=== PATIENT | male | born 1935 | race Two or more races ===

== ENCOUNTER 2023-12-30 02:32 | Inpatient (IN) | payer OTHER ==
[~2023-12-30] VITALS: Ht 162.6 cm; Wt 93.2 kg
[2023-12-30] VITALS (59 sets, daily range): BP systolic 79–121; BP diastolic 35–90; PULSE 67–130; RESP 10–30; TEMP 97.7–99; O2SAT 89–100
[~2023-12-30 02:32] MED LIST: METF-370 PO; ROSU20TA14 PO
[2023-12-30] MEDS: ONDANSETRON HCL 4 MG/2 ML VIAL IV ONE (03:00)
[2023-12-30] MEDS: SODIUM CHLORIDE 0.9% 2,000 ML IV ONE (03:01)
--- NOTE | 2023-12-30 03:02 | ED.PDOC ---
History of Present Illness HPI Comments 88-year-old male came to ER via EMS for generalized weakness., Picked up at home when family members noted for the past 2 days patient has been generally weak. Noted of episodes of on and a fever, shortness of breath, dysuria with cloudy urination. Upon arrival paramedics patient was noted to be hypotensive at 80/40 mm Hg, tachycardic at 140s, saturating 91% room air, blood sugar of 214 with a temp of 98.6 F. Patient was given IV fluids, and brought to the ER for further evaluation. Chief Complaint: General Weakness Time Seen by MD: 03:02 Reviewed Notes: Returner Notes Allergies: Coded Allergies: NO KNOWN ALLERGIES (Unverified , 12/30/23) Information Source: Patient, Emergency Med Personnel Mode of Arrival: EMS Severity: Moderate Timing: Days Duration: Since onset Prehospital treatment: IVF Past Medical History PAST MEDICAL HISTORY: COPD, DM Surgical History: Denies all surgeries Family History Family History: Reviewed,noncontributory to illness Social History Smoker: Non-Smoker Alcohol: Denies ETOH Use Drugs: Denies Drug Use Lives In: Home Constitutional: reports: fatigue, fever, malaise, weakness; denies: chills, diaphoresis, sweats, others EENTM: denies: blurred vision, double vision, ear bleeding, ear discharge, ear drainage, ear pain, ear ringing, eye pain, eye redness, hearing loss, mouth pain, mouth swelling, nasal discharge, nose bleeding, nose congestion, nose pain, photophobia, tearing, throat pain, throat swelling, voice changes, others Respiratory: reports: SOB at rest, shortness of breath; denies: cough, hemoptysis, orthopnea, SOB with excertion, stridor, wheezing, others Cardiovascular: denies: chest pain, dizzy spells, diaphoresis, Dyspnea on exertion, edema, irregular heart beat, left arm pain, lightheadedness, palpitations, PND, syncope, others Gastrointestinal: denies: abdomen distended, abdominal pain, blood streaked bowels, constipated, diarrhea, dysphagia, difficulty swallowing, hematemesis, melena, nausea, poor appetite, poor fluid intake, rectal bleeding, rectal pain, vomiting, others Genitourinary: reports: dysuria, others (Cloudy urine); denies: burning, flank pain, frequency, hematuria, incontinence, penile discharge, penile sore, pain, testicle pain, testicle swelling, urgency Neurological: denies: dizziness, fainting, headache, left sided numbness, left sided weakness, numbness, paresthesia, pre-existing deficit, right sided numbness, right sided weakness, seizure, speech problems, tingling, tremors, weakness, others Musculoskeletal: denies: back pain, gout, joint pain, joint swelling, muscle pain, muscle stiffness, neck pain, others Integumetry: denies: bruises, change in color, change in hair/nails, dryness, laceration, lesions, lumps, rash, wounds, others Allergic/Immunocompromised: denies: Difficulty Healing, Frequent Infections, Hives, Itching, others Hematologic/Lymphatic: denies: anemia, blood clots, easy bleeding, easy bruising, swollen glands, others Endocrine: denies: excessive hunger, excessive sweating, excessive thirst, excessive urination, flushing, intolerance to cold, intolerance to heat, unexplained weight gain, unexplained weight loss, others Psychiatric: denies: anxiety, bipolar disorder, depression, hopeless, panic disorder, schizophrenia, sleepless, suicidal, others Physical Exam General Appearance: No Apparent Distress, Normal HEENT: Normal ENT Inspection, Pharynx Normal, TMs Normal Neck: Full Range of Motion, Non-Tender, Normal, Normal Inspection Respiratory: Chest Non-Tender, Lungs Clear, No Accessory Muscle Use, No Respiratory Distress, Normal Breath Sounds Cardiovascular: No Edema, No JVD, No Murmur, No Gallop, Normal Peripheral Pulses, Regular Rate/Rhythm Breast Exam: Deferred Gastrointestinal: No Organomegaly, Non Tender, No Pulsatile Mass, Normal Bowel Sounds, Soft Genitalia: Deferred Pelvic: Deferred Rectal: Deferred Extremities: No calf tenderness, Normal capillary refill, Normal inspection, Normal range of motion, Non-tender, No pedal edema Musculoskeletal : Apperance: Normal Neurologic: Alert, hydro mechanic II-XII nml as Tested, No Motor Deficits, Normal Affect, Normal Mood, No Sensory Deficits Cerebellar Function: Normal Reflexes: Normal Skin: Dry, Normal Color, Warm Lymphatic: No Adenopathy Was a procedure done? Was a procedure done?: No Differential Dx Considerations may include: Anemia, electrolyte imbalance, sepsis, X-Ray, Labs, Meds, VS Vital Signs Date Time Temp Pulse Resp B/P (MAP) Pulse Ox O2 Delivery O2 Flow Rate FiO2 12/30/23 04:30 98.2 127 29 78/41 (53) 95 98.2 12/30/23 04:15 129 25 93/52 (66) 98 12/30/23 04:00 136 34 96/43 (60) 97 12/30/23 03:45 134 24 105/42 (63) 97 12/30/23 03:30 135 30 91/40 (57) 95 12/30/23 03:15 132 20 80/47 (58) 96 12/30/23 03:00 130 31 76/37 (50) 89 12/30/23 02:50 129 12/30/23 02:45 99.2 130 30 71/40 (50) 89 99.2 12/30/23 02:32 98.6 130 25 78/38 (51) 94 Lab Test 12/30/23 03:57 12/30/23 03:37 12/30/23 03:26 12/30/23 03:09 Range/Units Troponin I High Sensitivity 2483 *H 2789 *H </=54 ng/L Influenza Type A Antigen Negative Negative Influenza Type B Antigen Negative Negative SARS-CoV-2 Antigen (Rapid) Negative NEGATIVE Urine Color [place] H Yellow Urine Clarity Ex.turbid Clear Urine pH 5.5 5.0-9.0 Urine Specific [place] 1.023 1.001-1.035 Urine Protein 3+ H Negative Urine Ketones Negative Negative Urine Blood 3+ H Negative /uL Urine Nitrite Negative Negative Urine Bilirubin Negative Negative Urine Urobilinogen 3 H Negative mg/dL Urine Leukocyte Esterase 3+ Negative /uL Urine RBC 847 0 - 3 /hpf Urine WBC 624 0 - 3 /hpf Urine WBC Clumps Present None Seen /hpf Urine Squamous Epithelial Cells Few <5 /hpf Urine Bacteria None seen None Seen /hpf Urine Hyaline Casts Mod 0 - 2 /lpf Urine Granular Casts Few 0 /lpf Urine Mucus Few None Seen Urine Glucose Trace Normal mg/dL White Blood Count 8.1 4.4-10.8 10^3/uL Red Blood Count 4.94 4.5-5.90 10^6/uL Hemoglobin 14.9 13.5-17.5 g/dL Hematocrit 44.2 41.0-53.0 % Mean Corpuscular Volume 89.5 80.0-100.0 fL Mean Corpuscular Hemoglobin 30.1 28.0-32.0 pg Mean Corpuscular Hemoglobin Concent 33.7 32.0-36.0 g/dL Red Cell Distribution Width 13.8 11.8-14.3 % Platelet Count 140 140-450 10^3/uL Mean Platelet Volume 7.8 6.9-10.8 fL Neutrophils (%) (Auto) 93.7 H 37.0-80.0 % Lymphocytes (%) (Auto) 4.5 L 10.0-50.0 % Monocytes (%) (Auto) 1.5 0.0-12.0 % Eosinophils (%) (Auto) 0.1 0.0-7.0 % Basophils (%) (Auto) 0.2 0.0-2.0 % Neutrophils # (Auto) 7.6 1.6-8.6 10 ^3/uL Lymphocytes # (Auto) 0.4 0.4-5.4 10 ^3/uL Monocytes # (Auto) 0.1 0-1.3 10 ^3/uL Eosinophils # (Auto) 0 0-0.8 10 ^3/uL Basophils # (Auto) 0 0-0.2 10 ^3/uL Nucleated Red Blood Cells 0.2 % Sodium Level 140 136-145 mmol/L Potassium Level 3.4 L 3.5-5.1 mmol/L Chloride Level 104 98-107 mmol/L Carbon Dioxide Level 19 L 20-31 mmol/L Anion Gap 17 H 5-15 Blood Urea Nitrogen 19 9-23 mg/dL Creatinine 1.92 H 0.700-1.30 mg/dL Glomerular Filtration Rate Calc 34 >90 mL/min BUN/Creatinine Ratio 9.9 L 10.0-20.0 Serum Glucose 182 H 74-106 mg/dL Lactic Acid Level 7.6 *H 0.4-2.0 mmol/L Calcium Level 9.2 8.7-10.4 mg/dL Current Medications Medications (Trade) Dose Ordered Sig/Brody Route Start Time Stop Time Status Last Admin Sodium Chloride 2,000 ml @ 1,000 mls/hr Q2H ONCE IV 12/30/23 03:00 12/30/23 04:59 DC 12/30/23 03:01 Cefepime HCl 50 ml @ 12.5 mls/hr ONCE ONCE IV 12/30/23 03:00 12/30/23 06:59 12/30/23 03:05 Sodium Chloride 1,000 ml @ 1,000 mls/hr Q1H ONCE IV 12/30/23 05:00 12/30/23 05:59 12/30/23 05:00 Time of 1ST Reevaluation: 02:52 Reevaluation 1ST: Unchanged Patient Education/Counseling: Diagnosis, Treatment Family Education/Counseling: No Family Present Departure 1 Departure Time of Disposition: 05:13 (Patient presents acutely hypotensive and septic shock. Resuscitating patient and we will admit patient for further workup) Impression: Primary Impression: Septic shock Additional Impression: Urinary tract infection Qualified Codes: N30.01 - Acute cystitis with hematuria Disposition: ADMITTED INPATIENT Admit to: [facility] Condition: Guarded Critical Care Note Critical Care Time?: Yes Critical care comment: Septic shock Authorized and Performed by: Juan Sierra MD Total critical care time: Approximately 48 minutes Due to a high probability of clinically significant, life threatening deterioration, the patient required my highest level of preparedness to intervene emergently and I personally spent this critical care time directly and personally managing the patient. This critical care time included obtaining a history; examining the patient; pulse oximetry; ordering and review of studies; arranging urgent treatment with development of a management plan; evaluation of patient's response to treatment; frequent reassessment; and, discussions with other providers. This critical care time was performed to assess and manage the high probability of imminent, life-threatening deterioration that could result in multi-organ failure. It was exclusive of separately billable procedures and treating other patients and teaching time. Please see my other sections and the rest of the note for further information on patient assessment and treatment. Stability Stability form required: No Heart Score Heart Score: Heart Score Response (Comments) Value History N/A 0 EKG N/A 0 Age N/A 0 Risk Factors N/A 0 Troponin N/A 0 Total 0 I personally scribed for JUAN SIERRA MD ([email or web address]) on 12/30/23 at 03:02. Electronically submitted by Almas Terrazas ([email or web address]). JUAN SIERRA MD Dec 30, 2023 03:02
[2023-12-30] MEDS: CEFEPIME 2GM/50ML NS 50 ML IV ONE (03:05)
[2023-12-30 03:34] LABS: Basophils # (auto) 0 10 ^3/uL (0-0.2); Basophils % (auto) 0.2 % (0.0-2.0); Eosinophils # (auto) 0 10 ^3/uL (0-0.8); Eosinophils % (auto) 0.1 % (0.0-7.0); Hematocrit 44.2 % (41.0-53.0); Hemoglobin 14.9 g/dL (13.5-17.5); Lymphocytes # (auto) 0.4 10 ^3/uL (0.4-5.4); Lymphocytes % (auto) 4.5 % (10.0-50.0); Mean Corpuscular Hemoglobin 30.1 pg (28.0-32.0); Mean Corpuscular Hgb Conc. 33.7 g/dL (32.0-36.0); Mean Corpuscular Volume 89.5 fL (80.0-100.0); Monocytes # (auto) 0.1 10 ^3/uL (0-1.3); Monocytes % (auto) 1.5 % (0.0-12.0); Neutrophils # (auto) 7.6 10 ^3/uL (1.6-8.6); Neutrophils % (auto) 93.7 % (37.0-80.0); Nucleated Red Blood Cells % 0.2 %; Platelet Count (auto) 140 10^3/uL (140-450); Red Blood Cells 4.94 10^6/uL (4.5-5.90); Red Cell Distribution Width 13.8 % (11.8-14.3); White Blood Cell 8.1 10^3/uL (4.4-10.8)
[2023-12-30 03:39] LABS: Urine Bacteria None Seen /hpf (None Seen)
[2023-12-30 03:57] LABS: Urine Blood 3+ /uL (Negative); Urine Clarity Ex.Turbid (Clear); Urine Color Orange (Yellow); Urine Hyaline Cast MOD /lpf (0 - 2); Urine Mucus FEW (None Seen); Urine Protein, UAD 3+ (Negative); Urine Specific Gravity 1.023 (1.001-1.035); Urine Urobilinogen 3 mg/dL (Negative); Urine WBC 624 /hpf (0 - 3); Urine WBC Clumps PRESENT /hpf (None Seen); Urine pH 5.5 (5.0-9.0)
[2023-12-30 03:59] LABS: Chloride 104 mmol/L (98-107); Potassium 3.4 mmol/L (3.5-5.1); Sodium 140 mmol/L (136-145)
[2023-12-30 04:00] LABS: Anion Gap 17 (5-15); Calcium 9.2 mg/dL (8.7-10.4); Carbon Dioxide 19 mmol/L (20-31)
[2023-12-30 04:01] LABS: Lactic Acid w/Reflex 7.6 mmol/L (0.4-2.0)
[2023-12-30 04:05] LABS: BUN/Creatinine Ratio 9.9 (10.0-20.0); Blood Urea Nitrogen 19 mg/dL (9-23); Glucose 182 mg/dL (74-106)
[2023-12-30 04:16] LABS: COVID19 ANTIGEN SOFIA FIA NEGATIVE (NEGATIVE); Rapid Influenza A Negative (Negative); Rapid Influenza B Negative (Negative)
[2023-12-30] MEDS: SODIUM CHLORIDE 0.9% 1,000 ML IV ONE (05:00)
[2023-12-30] MEDS ORDERED: VANCOMYCIN 1GM/200ML PREMIX 200 ML IV ONE (05:15)
--- NOTE | 2023-12-30 05:16 | DVH ---
EXAM: XY CHEST PORTABLE Indication:weakness Technique: Single frontal view of the chest was obtained Comparison: None FINDINGS: Lines and Tubes: None Lungs: Ill-defined right lower lobe opacity. Pleura: No effusion. No pneumothorax. Cardiomediastinal contours: Unremarkable. Atherosclerotic vascular calcifications of the thoracic ao rta are noted. Bones: No acute osseous abnormality. IMPRESSION: Ill-defined right lower lobe opacity may reflect pneumonia or atelectasis.
[2023-12-30 06:13] LABS: INR 1.25 (0.9-1.15)
[2023-12-30] MEDS: VANCOMYCIN 1.5GM/300ML 300 ML IV ONE (06:17)
[2023-12-30] MEDS: AZITHROMYCIN 250 MG TAB PO ONE (06:23)
[2023-12-30] MEDS ORDERED: MORPHINE SULFATE INJ 2 MG/ml SYRG IV PRN (06:45)
[2023-12-30] MEDS ORDERED: NITROGLYCERIN 0.4 MG SL TAB SL PRN (06:45)
--- NOTE | 2023-12-30 06:46 | ECG ---
[facility] Test Date: 2023-12-30 Test Time: 02:50:32 Pat Name: KRYSTLE RON Department: ER Room: [address] [place] [address] Gender: M Headhunter: LOY : 1935 Requested By: JUAN MARISCAL Order Number: [id number] Reading MD: Toño Deras Measurements Intervals [place] Rate: 129 P: 81 AR: 165 QRS: -75 QRSD: 92 T: 83 QT: 280 QTc: 411 Interpretive Statements Sinus tachycardia Left anterior fascicular block Borderline low voltage, extremity leads Abnormal R-wave progression, late transition Electronically Signed On 01-04-2024 10:12:35 PST by Toño Deras Please click the below link to view image of tracing.
[2023-12-30] MEDS: HEPARIN SODIUM (PORCINE) 5000 UNITS/ML 1ML VIAL IV ONE (06:47)
[2023-12-30] MEDS: HEPARIN DRIP/D5W 100UNITS/ML 250 ML IV SCH (06:49)
[2023-12-30] MEDS ORDERED: DEXTROSE (50%) 50ML SYRG IV PRN (07:00)
[2023-12-30] MEDS: NOREPINEPHRINE 8 MG/250ML KIT 250 ML IV SCH (07:00)
[2023-12-30] MEDS: NOREPINEPHRINE 8 MG/250ML KIT 250 ML IV ONE (07:03)
--- NOTE | 2023-12-30 07:09 | DVHHP2 ---
Admitting Diagnosis: Sepsis, UTI, PNA, NSTEMI, DERECK on CKD History of Present Illness HPI 88 y.o. male with COPD, DM, CAD was brought to the ED c/o generalized weakness, SOB, fever and dysuria. On arrival patient was hypotensive at 80/40 mm Hg, with tachycardia 140. He was found to have UTI, PNA and consistently elevated tropo manny over 1999. Past Medical History Cardiac: CAD Pulmonary: COPD Endocrine: NIDDM Review of Systems Constitutional: Fever, Weakness Pulmonary/Respiratory: Dyspnea Genitourinary: Dysuria H&P Exam Vital Signs Vital Signs Date Time Temp Pulse Resp B/P (MAP) Pulse Ox O2 Delivery O2 Flow Rate FiO2 12/30/23 06:15 115 34 103/54 (70) 96 12/30/23 04:30 98.2 98.2 General Appeara: Moderate distress Head Exam: Normal inspection Neck Exam: Normal inspection Eye Exam: bilateral eye PERRL, bilateral eye EOMI Pulmonary/Respiratory: Crackles Cardiovascular/Chest: Tachycardia Abdominal Pain Onset Location: Suprapubic Neuro/Mental St: Alert, Oriented Labs/Xrays Labs Test 12/30/23 06:11 12/30/23 03:37 12/30/23 03:26 12/30/23 03:09 Range/Units Lactic Acid Level 7.5 *H 0.4-2.0 mmol/L Troponin I High Sensitivity 2131 *H </=54 ng/L Influenza Type A Antigen Negative Negative Influenza Type B Antigen Negative Negative SARS-CoV-2 Antigen (Rapid) Negative NEGATIVE Urine Color [place] H Yellow Urine Clarity Ex.turbid Clear Urine pH 5.5 5.0-9.0 Urine Specific [place] 1.023 1.001-1.035 Urine Protein 3+ H Negative Urine Ketones Negative Negative Urine Blood 3+ H Negative /uL Urine Nitrite Negative Negative Urine Bilirubin Negative Negative Urine Urobilinogen 3 H Negative mg/dL Urine Leukocyte Esterase 3+ Negative /uL Urine RBC 847 0 - 3 /hpf Urine WBC 624 0 - 3 /hpf Urine WBC Clumps Present None Seen /hpf Urine Squamous Epithelial Cells Few <5 /hpf Urine Bacteria None seen None Seen /hpf Urine Hyaline Casts Mod 0 - 2 /lpf Urine Granular Casts Few 0 /lpf Urine Mucus Few None Seen Urine Glucose Trace Normal mg/dL White Blood Count 8.1 4.4-10.8 10^3/uL Red Blood Count 4.94 4.5-5.90 10^6/uL Hemoglobin 14.9 13.5-17.5 g/dL Hematocrit 44.2 41.0-53.0 % Mean Corpuscular Volume 89.5 80.0-100.0 fL Mean Corpuscular Hemoglobin 30.1 28.0-32.0 pg Mean Corpuscular Hemoglobin Concent 33.7 32.0-36.0 g/dL Red Cell Distribution Width 13.8 11.8-14.3 % Platelet Count 140 140-450 10^3/uL Mean Platelet Volume 7.8 6.9-10.8 fL Neutrophils (%) (Auto) 93.7 H 37.0-80.0 % Lymphocytes (%) (Auto) 4.5 L 10.0-50.0 % Monocytes (%) (Auto) 1.5 0.0-12.0 % Eosinophils (%) (Auto) 0.1 0.0-7.0 % Basophils (%) (Auto) 0.2 0.0-2.0 % Neutrophils # (Auto) 7.6 1.6-8.6 10 ^3/uL Lymphocytes # (Auto) 0.4 0.4-5.4 10 ^3/uL Monocytes # (Auto) 0.1 0-1.3 10 ^3/uL Eosinophils # (Auto) 0 0-0.8 10 ^3/uL Basophils # (Auto) 0 0-0.2 10 ^3/uL Nucleated Red Blood Cells 0.2 % Prothrombin Time 13.0 H 9.3-11.8 sec Prothrombin Time INR 1.25 H 0.9-1.15 Activated Partial Thromboplast Time 31.0 24.5-34.5 SEC Sodium Level 140 136-145 mmol/L Potassium Level 3.4 L 3.5-5.1 mmol/L Chloride Level 104 98-107 mmol/L Carbon Dioxide Level 19 L 20-31 mmol/L Anion Gap 17 H 5-15 Blood Urea Nitrogen 19 9-23 mg/dL Creatinine 1.92 H 0.700-1.30 mg/dL Glomerular Filtration Rate Calc 34 >90 mL/min BUN/Creatinine Ratio 9.9 L 10.0-20.0 Serum Glucose 182 H 74-106 mg/dL Calcium Level 9.2 8.7-10.4 mg/dL Assessment/Plan Problem List: (1) Septic shock (2) NSTEMI (non-ST elevated myocardial infarction) (3) PNA (pneumonia) (4) Urinary tract infection (5) Acute kidney injury superimposed on CKD (6) COPD exacerbation Plan ICU, NS, Heparin, RT, O2, Solu Medrol, ECHO, cardiology consult, cultures, Cipro, Insulin SS Plan discussed with: Patient NATALIE MOORE MD Dec 30, 2023 07:09
[2023-12-30] MEDS: ACCU-CHEK COMFORT CURVE STRIP VI SCH (07:57)
[2023-12-30] MEDS: methylPREDNISolone SOD SUCC 125 MG/2 ML VL IV ONE (08:04)
[2023-12-30] MEDS: SOD CHL 0.45% 1,000 ML IV ONE (08:05)
[2023-12-30] MEDS: InsuLIN REG 1unit/0.01ml Soln (100units/ml) SC SCH (08:18)
[2023-12-30] MEDS: CIPROFLOXACIN 400MG/200ML 200 ML IV SCH (10:00)
[2023-12-30] MEDS: IPRATROPIUM BROM 0.5 MG/2.5ML INH SOL NEB SCH (11:11)
[2023-12-30] MEDS: ALBUTEROL SULF 2.5 MG/0.5ML(0.5%) NEB SOLN NEB SCH (11:11)
--- NOTE | 2023-12-30 11:38 | DVH ---
INDICATION: DERECK. TECHNIQUE: Multiple real-time sonographic images of the kidneys and urinary bladder were obtained. COMPARISON: None FINDINGS: The right kidney measures 10.9 cm in length. The right renal echotexture, contour and cortical thick ness are within normal limits. No hydronephrosis or large masses/calculi are seen. The left kidney measures 10.5 cm in length. The left renal echotexture, contour, and cortical thickne ss are within normal limits. No hydronephrosis or large masses/calculi are seen. Coelho catheter in the urinary bladder. Urinary bladder decompressed. IMPRESSION: 1. No hydronephrosis. 2. Coelho catheter in the urinary bladder.
[2023-12-30] MEDS: HYDROCORTISONE SOD SUCC 100 MG/2ML INJ VIAL IV SCH (12:48)
[2023-12-30] MEDS: PANTOPRAZOLE 40 MG/10 ML VIAL INJ IV SCH (12:48)
[2023-12-30 13:39] LABS: Prothrombin Time 13.5 sec (9.3-11.8)
[2023-12-30 13:47] LABS: Partial Thromboplastin Time > 139.0 SEC (24.5-34.5)
--- NOTE | 2023-12-30 16:08 | DVHINCON2 ---
Date of service: Dec 30, [address] Deal Reason for Consultation acute kidney injury History of Present Illness Mr. Dinh is a 88-year-old male with presentation to the hospital with chief complaint of generalized weakness. His clinical course has been notable for persistent hypotension requiring vasopressor support, elevated cardiac injury markers, and elevated serum creatinine. He was seen in the intensive care unit earlier today, he was somnolent but appeared to be in no acute distress. Most of the history was obtained through the chart. Urine volumes have been nonoliguric thus far today. Past Medical History diabetes Hypertension Allergies: Coded Allergies: NO KNOWN ALLERGIES (Unverified , 12/30/23) Current Medications Current Medications Medications (Trade) Dose Ordered Sig/Brody Route PRN Reason Start Time Stop Time Status Last Admin Heparin Sodium/ Dextrose 250 ml @ 9 mls/hr Q24H IV 12/30/23 06:30 12/30/23 06:49 Nitroglycerin (Ntrostat Sublingual) 0.4 mg Q5MINP PRN SL FOR CHEST PAIN 12/30/23 06:45 Morphine Sulfate 2 mg Q30M PRN IV FOR CHEST PAIN 12/30/23 06:45 Ciprofloxacin 200 ml @ 200 mls/hr BID IV 12/30/23 10:00 12/30/23 11:28 DC Albuterol (Ventolin Medneb) 2.5 mg Q6HR NEB 12/30/23 12:00 12/30/23 11:11 Ipratropium Vici (Atrovent Medneb) 0.5 mg Q6HP NEB 12/30/23 12:00 12/30/23 11:11 Diagnostic Test (Pha) (Accu-Chek Comfort Curve T) 1 strip ACHS 12/30/23 07:00 12/30/23 11:00 Insulin Human Regular (InsuLIN R) ACHS SC 12/30/23 07:00 12/30/23 11:02 Dextrose 50 ml UD PRN IV Blood Sugar LESS THAN 60 12/30/23 07:00 Norepinephrine Bitartrate 250 ml @ 3.75 mls/hr Q24H IV 12/30/23 07:00 12/30/23 12:03 Cefepime HCl 50 ml @ 12.5 mls/hr Q12HR IV 12/30/23 22:00 Hydrocortisone Sodium Succinate (Solu-CORTEF INJECTION) 100 mg Q8HR IV 12/30/23 14:00 12/30/23 12:48 Atorvastatin Calcium (Lipitor) 20 mg HS PO 12/30/23 22:00 Pantoprazole Sodium (Protonix) 40 mg DAILY IV 12/30/23 11:30 12/30/23 12:48 Review of Systems limited due to patient's critical status. H&P Exam Vital Signs/I&O Vital Sign Date Time Temp Pulse Resp B/P (MAP) Pulse Ox O2 Delivery O2 Flow Rate FiO2 12/30/23 15:30 105/45 12/30/23 15:15 70 24 98 12/30/23 14:00 Nasal Cannula* 2 28 12/30/23 12:00 98.0 98.0 Intake and Output 12/29/23 12/30/23 19:00 07:00 Intake Total 3050 ml Balance 3050 ml Intake IV Total 3050 ml Physical Exam gen: nad, somnolent heent: nc lungs: cta anteriorly cvs: no rub abd: soft, bowel sounds audible ext: no signfiicant pretibial edema skin: no rash neuro: somnolent Labs/Diagnostic Data Labs/Diagnostic Data Laboratory Tests Test 12/30/23 12:55 12/30/23 10:57 12/30/23 07:59 12/30/23 06:11 Range/Units Prothrombin Time 13.5 H 9.3-11.8 sec Prothrombin Time INR 1.30 H 0.9-1.15 Activated Partial Thromboplast Time > 139.0 *H 24.5-34.5 SEC POC Glucose 205 H 178 H 70-106 mg/dl Lactic Acid Level 7.5 *H 0.4-2.0 mmol/L Troponin I High Sensitivity 2131 *H </=54 ng/L Test 12/30/23 03:57 12/30/23 03:37 12/30/23 03:26 12/30/23 03:09 Range/Units Troponin I High Sensitivity 2483 *H 2789 *H </=54 ng/L Influenza Type A Antigen Negative Negative Influenza Type B Antigen Negative Negative SARS-CoV-2 Antigen (Rapid) Negative NEGATIVE Urine Color [place] H Yellow Urine Clarity Ex.turbid Clear Urine pH 5.5 5.0-9.0 Urine Specific [place] 1.023 1.001-1.035 Urine Protein 3+ H Negative Urine Ketones Negative Negative Urine Blood 3+ H Negative /uL Urine Nitrite Negative Negative Urine Bilirubin Negative Negative Urine Urobilinogen 3 H Negative mg/dL Urine Leukocyte Esterase 3+ Negative /uL Urine RBC 847 0 - 3 /hpf Urine WBC 624 0 - 3 /hpf Urine WBC Clumps Present None Seen /hpf Urine Squamous Epithelial Cells Few <5 /hpf Urine Bacteria None seen None Seen /hpf Urine Hyaline Casts Mod 0 - 2 /lpf Urine Granular Casts Few 0 /lpf Urine Mucus Few None Seen Urine Glucose Trace Normal mg/dL White Blood Count 8.1 4.4-10.8 10^3/uL Red Blood Count 4.94 4.5-5.90 10^6/uL Hemoglobin 14.9 13.5-17.5 g/dL Hematocrit 44.2 41.0-53.0 % Mean Corpuscular Volume 89.5 80.0-100.0 fL Mean Corpuscular Hemoglobin 30.1 28.0-32.0 pg Mean Corpuscular Hemoglobin Concent 33.7 32.0-36.0 g/dL Red Cell Distribution Width 13.8 11.8-14.3 % Platelet Count 140 140-450 10^3/uL Mean Platelet Volume 7.8 6.9-10.8 fL Neutrophils (%) (Auto) 93.7 H 37.0-80.0 % Lymphocytes (%) (Auto) 4.5 L 10.0-50.0 % Monocytes (%) (Auto) 1.5 0.0-12.0 % Eosinophils (%) (Auto) 0.1 0.0-7.0 % Basophils (%) (Auto) 0.2 0.0-2.0 % Neutrophils # (Auto) 7.6 1.6-8.6 10 ^3/uL Lymphocytes # (Auto) 0.4 0.4-5.4 10 ^3/uL Monocytes # (Auto) 0.1 0-1.3 10 ^3/uL Eosinophils # (Auto) 0 0-0.8 10 ^3/uL Basophils # (Auto) 0 0-0.2 10 ^3/uL Nucleated Red Blood Cells 0.2 % Prothrombin Time 13.0 H 9.3-11.8 sec Prothrombin Time INR 1.25 H 0.9-1.15 Activated Partial Thromboplast Time 31.0 24.5-34.5 SEC Sodium Level 140 136-145 mmol/L Potassium Level 3.4 L 3.5-5.1 mmol/L Chloride Level 104 98-107 mmol/L Carbon Dioxide Level 19 L 20-31 mmol/L Anion Gap 17 H 5-15 Blood Urea Nitrogen 19 9-23 mg/dL Creatinine 1.92 H 0.700-1.30 mg/dL Glomerular Filtration Rate Calc 34 >90 mL/min BUN/Creatinine Ratio 9.9 L 10.0-20.0 Serum Glucose 182 H 74-106 mg/dL Lactic Acid Level 7.6 *H 0.4-2.0 mmol/L Calcium Level 9.2 8.7-10.4 mg/dL Assessment IMP: 1) hemodynamically mediated acute kidney injury and vasomotor nephropathy in the setting of shock. active urinary sediment 2) possible NSTEMI 3) CKD stage III? - baseline serum creatinine on to this blog writer 4) elevated anion gap metabolic acidosis, lactic acidosis 5) possible complicated urinary tract infection REC: - will check urine studies, serial chemistry panels - will check urine culture - even to slightly positive fluid balance as cardiopulmonary status permits - Avoidance of NSAIDs, intravenous contrast studies if able - will continue to follow closely along with you. Thank you for the consultation. Plan discussed with: Other ANKIT WADE MD Dec 30, 2023 16:08
[2023-12-30 16:48] LABS: Urine Bacteria FEW /hpf (None Seen); Urine Blood 2+ /uL (Negative); Urine Budding Yeast MODERATE /hpf (None Seen); Urine Clarity Turbid (Clear); Urine Color Colorless (Yellow); Urine Mucus FEW (None Seen); Urine Protein, UAD 1+ (Negative); Urine Specific Gravity 1.007 (1.001-1.035); Urine Urobilinogen Normal (Negative); Urine WBC 11 /hpf (0 - 3); Urine pH 5.5 (5.0-9.0)
[2023-12-30 16:51] LABS: Sodium Urine < 10 mmol/L (40-220)
[2023-12-30 16:56] LABS: Protein, Urine 60.6 mg/dL (1-14)
[2023-12-30 16:58] LABS: Creatinine, Urine 38.87 mg/dL (30.0-125.0)
[2023-12-30] MEDS: CEFEPIME 1GM/ 50ML 50 ML IV SCH (21:44)
[2023-12-30] MEDS: ATORVASTATIN 20 MG TAB PO SCH (21:44)
[2023-12-30] MEDS: MELATONIN 5 MG TAB PO PRN (23:18)
[2023-12-31] VITALS (104 sets, daily range): BP systolic 80–135; BP diastolic 32–70; PULSE 69–100; RESP 10–26; TEMP 97.5–98.2; O2SAT 95–100
[2023-12-31] MEDS ORDERED: VALS160T53 PO (01:54)
[2023-12-31] MEDS ORDERED: TAMS-35 PO (01:57)
[2023-12-31 04:14] LABS: Hematocrit 37.8 % (41.0-53.0); Hemoglobin 12.8 g/dL (13.5-17.5); Mean Corpuscular Hgb Conc. 33.8 g/dL (32.0-36.0); Mean Corpuscular Volume 88.6 fL (80.0-100.0); Platelet Count (auto) 149 10^3/uL (140-450); Red Blood Cells 4.27 10^6/uL (4.5-5.90); Red Cell Distribution Width 13.6 % (11.8-14.3)
[2023-12-31 04:16] LABS: Basophils % (manual) 0 (0.0-2.0); Blast Cells 0; Eosinophils % (manual) 0 (0-7); Metamyelocytes % 0; Myelocytes % 0; Promyelocytes % 0; Reactive Lymphocytes 0
[2023-12-31 04:30] LABS: INR 1.15 (0.9-1.15); Prothrombin Time 12.1 sec (9.3-11.8)
[2023-12-31 04:31] LABS: Alanine Aminotransferase 38 U/L (7-40); Albumin 3.8 g/dL (3.2-4.8); Alkaline Phosphatase 159 U/L (46-116); Anion Gap 10 (5-15); Aspartate Aminotransferase 42 U/L (13-40); BUN/Creatinine Ratio 11.8 (10.0-20.0); Bilirubin, Direct 0.2 mg/dL (<0.3); Bilirubin, Total 0.4 mg/dL (0.2-1.0); Blood Urea Nitrogen 22 mg/dL (9-23); Calcium 8.9 mg/dL (8.7-10.4); Carbon Dioxide 21 mmol/L (20-31); Chloride 109 mmol/L (98-107); Phosphorus 2.9 mg/dL (2.4-5.1); Potassium 4.3 mmol/L (3.5-5.1); Sodium 140 mmol/L (136-145)
[2023-12-31 04:36] LABS: Glucose 368 mg/dL (74-106)
[2023-12-31 04:46] LABS: Uric Acid 3.2 mg/dL (3.7-9.2)
[2023-12-31 04:50] LABS: Lactic Acid w/Reflex 3.7 mmol/L (0.4-2.0)
[2023-12-31] MEDS: HEPARIN DRIP/D5W 100UNITS/ML 250 ML IV SCH ×2 (05:00→13:06)
[2023-12-31] MEDS: HEPARIN SODIUM (PORCINE) 5000 UNITS/ML 1ML VIAL IV ONE (05:12)
[2023-12-31 05:29] LABS: Band Neutrophils % (manual) 15; Lymphocytes % (manual) 5 (10.0-50.0); Monocytes % (manual) 9 (0-12); Platelet Estimate Adequate
--- NOTE | 2023-12-31 10:08 | DVHPN2 ---
Progress Note - Dictate Date Seen: Dec 31, 2023 Medical Necessity Reason Pt with a Central, PICC or Fol: Yes The following are medically ne: Kendall Catheter Reason for kendall catheter: Strict I&O Subjective More awake and alert this morning. Denies current dyspnea or chest pain. vital signs Vital Sign Date Time Temp Pulse Resp B/P (MAP) Pulse Ox O2 Delivery O2 Flow Rate FiO2 12/31/23 08:00 92 14 97 Nasal Cannula* 2 28 12/31/23 07:45 89/57 (68) 12/31/23 00:00 98.1 98.1 Total Intake and Output 12/30/23 12/30/23 12/31/23 15:00 23:00 07:00 Intake Total 1386.75 ml 720.00 ml 875.25 ml Output Total 1500 ml 560 ml Balance 1386.75 ml -780.00 ml 315.25 ml medications Current Medications Medications Dose Ordered Sig/Brody Route Start Time Stop Time Status Last Admin Dose Admin Nitroglycerin 0.4 mg Q5MINP PRN SL 12/30/23 06:45 Morphine Sulfate 2 mg Q30M PRN IV 12/30/23 06:45 Albuterol 2.5 mg Q6HR NEB 12/30/23 12:00 12/31/23 06:31 2.5 MG Ipratropium Seltzer 0.5 mg Q6HP NEB 12/30/23 12:00 12/31/23 06:31 0.5 MG Diagnostic Test (Pha) 1 strip ACHS 12/30/23 07:00 12/31/23 05:30 1 STRIP Insulin Human Regular ACHS SC 12/30/23 07:00 12/31/23 05:16 8 UNITS Dextrose 50 ml UD PRN IV 12/30/23 07:00 Norepinephrine Bitartrate 250 ml @ 3.75 mls/hr Q24H IV 12/30/23 07:00 12/30/23 23:18 11.25 MLS/HR Cefepime HCl 50 ml @ 12.5 mls/hr Q12HR IV 12/30/23 22:00 12/31/23 09:02 12.5 MLS/HR Atorvastatin Calcium 20 mg HS PO 12/30/23 22:00 12/30/23 21:44 20 MG Pantoprazole Sodium 40 mg DAILY IV 12/30/23 11:30 12/31/23 09:02 40 MG Melatonin 10 mg HS PRN PO 12/30/23 22:45 12/30/23 23:18 10 MG Heparin Sodium/ Dextrose 250 ml @ 7 mls/hr Q24H IV 12/31/23 05:30 12/31/23 05:00 7 MLS/HR Hydrocortisone Sodium Succinate 100 mg Q12HR IV 12/31/23 18:00 UNV objective Gen: nad lungs: cta cvs: no rub ext: no edema laboratory and microbiology Laboratory Tests 12/31/23 03:20 Test 12/31/23 03:20 Range/Units Serum Glucose 368 #H 74-106 mg/dL Assessment/Plan IMP: 1) hemodynamically mediated acute kidney injury and vasomotor nephropathy in the setting of shock. active urinary sediment 2) possible NSTEMI 3) CKD stage III? , approximally 500 mg of proteinuria 4) elevated anion gap metabolic acidosis, lactic acidosis 5) possible complicated urinary tract infection REC: - GFR improving, patient with low FeNa/ suspect "prerenal" state -even to slightly positive fluid balance as tolerated - we will continue to follow closely with you. Plan discussed with: Patient ANKIT WADE MD Dec 31, 2023 10:08
[2023-12-31] MEDS: SODIUM CHLORIDE 0.9% 1,000 ML IV ONE (10:31)
--- NOTE | 2023-12-31 11:24 | DVHPN2 ---
Progress Note - Dictate Date Seen: Dec 31, 2023 Medical Necessity Reason Pt with a Central, PICC or Fol: Yes The following are medically ne: Kendall Catheter Reason for kendall catheter: Strict I&O Subjective Patient feeling well today. No new complaints. vital signs Vital Sign Date Time Temp Pulse Resp B/P (MAP) Pulse Ox O2 Delivery O2 Flow Rate FiO2 12/31/23 10:00 78 12/31/23 10:00 18 98 Nasal Cannula* 2 28 12/31/23 10:00 101/48 12/31/23 08:00 97.7 97.7 Total Intake and Output 12/30/23 12/30/23 12/31/23 15:00 23:00 07:00 Intake Total 1386.75 ml 720.00 ml 875.25 ml Output Total 1500 ml 560 ml Balance 1386.75 ml -780.00 ml 315.25 ml medications Current Medications Medications Dose Ordered Sig/Brody Route Start Time Stop Time Status Last Admin Dose Admin Nitroglycerin 0.4 mg Q5MINP PRN SL 12/30/23 06:45 Morphine Sulfate 2 mg Q30M PRN IV 12/30/23 06:45 Albuterol 2.5 mg Q6HR NEB 12/30/23 12:00 12/31/23 06:31 2.5 MG Ipratropium [place] 0.5 mg Q6HP NEB 12/30/23 12:00 12/31/23 06:31 0.5 MG Diagnostic Test (Pha) 1 strip ACHS 12/30/23 07:00 12/31/23 05:30 1 STRIP Insulin Human Regular ACHS SC 12/30/23 07:00 12/31/23 05:16 8 UNITS Dextrose 50 ml UD PRN IV 12/30/23 07:00 Norepinephrine Bitartrate 250 ml @ 3.75 mls/hr Q24H IV 12/30/23 07:00 12/30/23 23:18 11.25 MLS/HR Cefepime HCl 50 ml @ 12.5 mls/hr Q12HR IV 12/30/23 22:00 12/31/23 09:02 12.5 MLS/HR Atorvastatin Calcium 20 mg HS PO 12/30/23 22:00 12/30/23 21:44 20 MG Pantoprazole Sodium 40 mg DAILY IV 12/30/23 11:30 12/31/23 09:02 40 MG Melatonin 10 mg HS PRN PO 12/30/23 22:45 12/30/23 23:18 10 MG Heparin Sodium/ Dextrose 250 ml @ 7 mls/hr Q24H IV 12/31/23 05:30 12/31/23 05:00 7 MLS/HR Hydrocortisone Sodium Succinate 100 mg Q12HR IV 12/31/23 18:00 objective General appearance: No acute distress Respiratory: Fine bibasilar crackles. Cardiovascular: Regular rate and rhythm, no murmurs. No edema Abdomen: Soft, nondistended, nontender, bowel sounds present. No signs of acute abdomen. MSK: Normal range of motion. Neuro: Alert, no neurological deficits Psych: Appropriate mood and affect. laboratory and microbiology Laboratory Tests 12/31/23 03:20 Test 12/31/23 03:20 Range/Units Serum Glucose 368 #H 74-106 mg/dL Problem List 1. Septic Shock 2. NSTEMI 3. DERECK 4. Type 2 DM 5. UTI 6. Acute Respiratory Failure Assessment/Plan -Continue Levophed with titration to MAP greater than 65. Decrease hydrocortisone to 100 mg every 12. Continue broad-spectrum antibiotics vancomycin and cefepime. Blood cultures pending. Respiratory cultures pending. Urine cultures pending. WBC elevation likely exacerbated by hydrocortisone use. Infectious disease consulted. -Additional 1 L NS at 250 mL/h. Patient has received a total of 3 L of IV fluids since admission. IV fluids were stopped due to concern of respiratory failure. -Continue heparin drip. Troponins downtrending. Cardiology consulted. TTE pending. Possible left heart cath on Monday. -DERECK improving. Ultrasound renal does not reveal any signs of hydronephrosis. Continue Kendall for urinary retention. -Insulin sliding scale for type 2 diabetes. -Goal pulse ox 90 to 92%. -Physical therapy pending. -Protonix 40 mg daily. -Full code. Discussed with the patient at bedside with POA . Plan discussed with: Patient IRENA PEGUERO Dec 31, 2023 11:24
[2023-12-31 12:36] LABS: INR 1.12 (0.9-1.15); Prothrombin Time 11.8 sec (9.3-11.8)
[2023-12-31 12:40] LABS: Partial Thromboplastin Time 79.4 SEC (24.5-34.5)
[2023-12-31] MEDS: HYDROCORTISONE SOD SUCC 100 MG/2ML INJ VIAL IV SCH (17:03)
--- NOTE | 2023-12-31 18:03 | DVHINCON2 ---
Date of service: Dec 31, 2023 History of Present Illness 88 yo M with hx of DM, HTN< (no hx of cad per pt) admitted for UTI and urosepsis and shock. pt found to have nstemi. 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, septal infarct Past Medical History reviewed Allergies: Coded Allergies: NO KNOWN ALLERGIES (Unverified , 12/30/23) Home Meds Reported Medications Metformin Hydrochloride (Metformin Hcl) 500 Mg Tab, 500 MG PO IBID for 30 Days, MG 12/31/23 Tamsulosin Hcl (Flomax) 0.4 Mg Cap, 0.4 MG PO DAILY, CAP 12/31/23 Rosuvastatin Calcium (Crestor) 20 Mg Tab, 1 TAB PO DAILY, #90 TAB 1 Refill 12/31/23 Valsartan-Hydrochlorothiazide (Diovan Hct) 160 /12.5 Tab, 1 TAB PO DAILY, #30 TAB 5 Refills 12/31/23 Current Medications Current Medications Medications (Trade) Dose Ordered Sig/Brody Route PRN Reason Start Time Stop Time Status Last Admin Cefepime HCl 50 ml @ 12.5 mls/hr Q12HR IV 12/30/23 22:00 12/31/23 09:02 Atorvastatin Calcium (Lipitor) 20 mg HS PO 12/30/23 22:00 12/30/23 21:44 Melatonin (Melatonin) 10 mg HS PRN PO FOR INSOMNIA 12/30/23 22:45 12/30/23 23:18 Heparin Sodium/ Dextrose 250 ml @ 7 mls/hr Q24H IV 12/31/23 05:30 12/31/23 12:59 DC 12/31/23 05:00 Hydrocortisone Sodium Succinate (Solu-CORTEF INJECTION) 100 mg Q12HR IV 12/31/23 22:00 12/31/23 09:30 DC Hydrocortisone Sodium Succinate (Solu-CORTEF INJECTION) 100 mg Q12HR IV 12/31/23 18:00 12/31/23 17:03 Heparin Sodium/ Dextrose 250 ml @ 5 mls/hr Q24H IV 12/31/23 13:00 12/31/23 13:06 Review of Systems 10 pt ros otherwise negative Vital Signs Vital Signs Date Time Temp Pulse Resp B/P (MAP) Pulse Ox O2 Delivery O2 Flow Rate FiO2 12/31/23 16:15 77 17 106/55 (72) 98 12/31/23 16:00 97.5 97.5 12/31/23 16:00 Nasal Cannula* 2 28 Physical Exam nad s1 s2 rrr ctab soft nt/nd no edema Labs/Diagnostic Data Labs Test 12/31/23 16:56 12/31/23 11:32 12/31/23 06:03 12/31/23 03:20 Range/Units POC Glucose 341 H 70-106 mg/dl Prothrombin Time 11.8 9.3-11.8 sec Prothrombin Time INR 1.12 0.9-1.15 Activated Partial Thromboplast Time 79.4 *H 24.5-34.5 SEC Lactic Acid Level 3.5 *H 0.4-2.0 mmol/L White Blood Count 24.0 #H 4.4-10.8 10^3/uL Red Blood Count 4.27 L 4.5-5.90 10^6/uL Hemoglobin 12.8 L 13.5-17.5 g/dL Hematocrit 37.8 #L 41.0-53.0 % Mean Corpuscular Volume 88.6 80.0-100.0 fL Mean Corpuscular Hemoglobin 30.0 28.0-32.0 pg Mean Corpuscular Hemoglobin Concent 33.8 32.0-36.0 g/dL Red Cell Distribution Width 13.6 11.8-14.3 % Platelet Count 149 140-450 10^3/uL Mean Platelet Volume 7.6 6.9-10.8 fL Neutrophils (%) (Auto) 37.0-80.0 % Lymphocytes (%) (Auto) 10.0-50.0 % Monocytes (%) (Auto) 0.0-12.0 % Basophils (%) (Auto) 0.0-2.0 % Neutrophils # (Auto) 1.6-8.6 10 ^3/uL Lymphocytes # (Auto) 0.4-5.4 10 ^3/uL Monocytes # (Auto) 0-1.3 10 ^3/uL Differential Total Cells Counted 100.0 100 Neutrophils % (Manual) 71 37.0-80.0 Band Neutrophils % (Manual) 15 Lymphocytes % (Manual) 5 L 10.0-50.0 Monocytes % (Manual) 9 0-12 Eosinophils % (Manual) 0 0-7 Basophils % (Manual) 0 0.0-2.0 Metamyelocytes % (manual) 0 Myelocytes % (Manual) 0 Promyelocytes % (Manual) 0 Blast Cells % (Manual) 0 Reactive Lymphocytes 0 Platelet Estimate Adequate Sodium Level 140 136-145 mmol/L Potassium Level 4.3 3.5-5.1 mmol/L Chloride Level 109 H 98-107 mmol/L Carbon Dioxide Level 21 20-31 mmol/L Anion Gap 10 5-15 Blood Urea Nitrogen 22 9-23 mg/dL Creatinine 1.86 H 0.700-1.30 mg/dL Glomerular Filtration Rate Calc 35 >90 mL/min BUN/Creatinine Ratio 11.8 10.0-20.0 Serum Glucose 368 #H 74-106 mg/dL Uric Acid 3.2 L 3.7-9.2 mg/dL Calcium Level 8.9 8.7-10.4 mg/dL Phosphorus Level 2.9 2.4-5.1 mg/dL Total Bilirubin 0.4 0.2-1.0 mg/dL Direct Bilirubin 0.2 <0.3 mg/dL Aspartate Amino Transferase (AST) 42 H 13-40 U/L Alanine Aminotransferase (ALT) 38 7-40 U/L Alkaline Phosphatase 159 H 46-116 U/L Lactate Dehydrogenase 299 H 120-246 U/L Troponin I High Sensitivity 732 *H </=54 ng/L Total Protein 6.0 5.7-8.2 g/dL Albumin 3.8 3.2-4.8 g/dL Test 12/30/23 16:20 12/30/23 03:37 12/30/23 03:26 12/30/23 03:09 Range/Units Urine Color Colorless Yellow Urine Clarity Turbid H Clear Urine pH 5.5 5.0-9.0 Urine Specific [place] 1.007 1.001-1.035 Urine Protein 1+ H Negative Urine Ketones Trace Negative Urine Blood 2+ H Negative /uL Urine Nitrite Negative Negative Urine Bilirubin Negative Negative Urine Urobilinogen Normal Negative mg/dL Urine Leukocyte Esterase Trace Negative /uL Urine RBC 7 0 - 3 /hpf Urine WBC 11 0 - 3 /hpf Urine Squamous Epithelial Cells Few <5 /hpf Urine Bacteria Few H None Seen /hpf Urine Mucus Few None Seen Urine Yeast (Budding) Moderate None Seen /hpf Urine Creatinine 38.87 30.0-125.0 mg/dL Urine Sodium < 10 L 40-220 mmol/L Urine Glucose 3+ H Normal mg/dL Urine Total Protein 60.6 H 1-14 mg/dL Influenza Type A Antigen Negative Negative Influenza Type B Antigen Negative Negative SARS-CoV-2 Antigen (Rapid) Negative NEGATIVE Urine WBC Clumps Present None Seen /hpf Urine Hyaline Casts Mod 0 - 2 /lpf Urine Granular Casts Few 0 /lpf Eosinophils (%) (Auto) 0.1 0.0-7.0 % Eosinophils # (Auto) 0 0-0.8 10 ^3/uL Basophils # (Auto) 0 0-0.2 10 ^3/uL Nucleated Red Blood Cells 0.2 % Microbiology Date/Time Source Procedure Growth Status 12/30/23 16:20 Urine - [place] Urine Culture - Preliminary Resulted 12/30/23 14:30 Nose MRSA Screen - Final Complete 12/30/23 03:09 Blood Blood Culture - Preliminary NO GROWTH AFTER 24 HOURS OF INCUBATION. Resulted Assessment UTI urosepsis septic shock on pressors nstemi LAFB DM HTN Plan/Recommendation check echo 48 hour of heparin gtt, will dc in AM no chest pain or sob, clearly has bad UTI --recommend medical therapy for nstemi recommend outpt stress MPI once stable plavix on dc statin abx as indicated wean down pressors, down to 4mcg of levo but bp 90s now 40 mins critical care time spent new consult d/w RN and pt Plan discussed with: Patient, Other (rn) CARYN SCHMIDT MD Dec 31, 2023 18:03
[2023-12-31 19:53] LABS: INR 1.05 (0.9-1.15); Partial Thromboplastin Time 38.6 SEC (24.5-34.5); Prothrombin Time 11.1 sec (9.3-11.8)
[2023-12-31] MEDS ORDERED: HYDROCORTISONE SOD SUCC 100 MG/2ML INJ VIAL IV SCH (22:00)
[2024-01-01] VITALS (108 sets, daily range): BP systolic 78–134; BP diastolic 41–81; PULSE 56–92; RESP 11–21; TEMP 97.8–98.4; O2SAT 95–99
[2024-01-01 02:35] LABS: Hematocrit 36.6 % (41.0-53.0); Hemoglobin 12.1 g/dL (13.5-17.5); Mean Corpuscular Hemoglobin 29.4 pg (28.0-32.0); Mean Corpuscular Hgb Conc. 33.1 g/dL (32.0-36.0); Mean Corpuscular Volume 88.9 fL (80.0-100.0); Platelet Count (auto) 152 10^3/uL (140-450); Red Blood Cells 4.11 10^6/uL (4.5-5.90); Red Cell Distribution Width 14.1 % (11.8-14.3); White Blood Cell 21.4 10^3/uL (4.4-10.8)
[2024-01-01 02:49] LABS: Basophils % (manual) 0 (0.0-2.0); Blast Cells 0; Eosinophils % (manual) 0 (0-7); Metamyelocytes % 0; Myelocytes % 0; Promyelocytes % 0; Reactive Lymphocytes 0
[2024-01-01 02:54] LABS: INR 1.07 (0.9-1.15); Prothrombin Time 11.3 sec (9.3-11.8)
[2024-01-01] MEDS: HEPARIN DRIP/D5W 100UNITS/ML 250 ML IV SCH (03:17)
[2024-01-01 05:06] LABS: Band Neutrophils % (manual) 3; Lymphocytes % (manual) 4 (10.0-50.0); Monocytes % (manual) 6 (0-12); Platelet Estimate Adequate
[2024-01-01 05:42] LABS: Alanine Aminotransferase 112 U/L (7-40); Albumin 3.7 g/dL (3.2-4.8); Alkaline Phosphatase 174 U/L (46-116); Anion Gap 7 (5-15); Aspartate Aminotransferase 120 U/L (13-40); BUN/Creatinine Ratio 18.2 (10.0-20.0); Bilirubin, Total 0.3 mg/dL (0.2-1.0); Calcium 8.5 mg/dL (8.7-10.4); Carbon Dioxide 22 mmol/L (20-31); Chloride 109 mmol/L (98-107); Glucose 337 mg/dL (74-106); Magnesium 2.3 mg/dL (1.6-2.6); Potassium 4.2 mmol/L (3.5-5.1); Sodium 138 mmol/L (136-145); Total Protein 5.5 g/dL (5.7-8.2)
[2024-01-01 05:55] LABS: Blood Urea Nitrogen 33 mg/dL (9-23)
--- NOTE | 2024-01-01 08:51 | DVHSR ---
APPROVED REPORT EXAM: LIMITED Two-dimensional and M-mode echocardiogram with Doppler and color Doppler. Blood Pressure: 107/90 mmHg INDICATION NSTEMI RISK FACTORS Height: 5' 4", Weight: 158 DIMENSIONS LVDd4.3 (3.8-5.7cm)LA (2D)4.2 (1.9-4.0cm)Aortic Root (2.0-3.7cm) LVDs3.3 (2.5-4.0cm)LA (MM) (1.9-4.0cm)Aortic Cusp Exc1.5 (1.5-2.0cm) EF (%) 48.0 (55-70%)Rt. Atrium4.9 (1.9-4.0cm)Asc. Aorta cm IVSd1.0 (0.7-1.1cm)RV (D) (1.8-2.4cm) PWd1.1 (0.7-1.1cm) Mitral Valve MitralMitral Stenosis E wave1.40m/sMV Mean GR.mmHg A wave1.00m/sMV Peak GR.mmHg E/A ratio1.42D MVAcm2 Aortic Valve Aortic ValveAortic Stenosis V11.20m/Jason Mean GR.8mmHg V21.90m/Jason Peak GR.16mmHg LVOT Diameter2.1 (1.8-2.4cm)Doppler AVA2.19cm2 Tricuspid Valve TR Velocity3.30m/s [id number] Other Information Quality : Technically LimitedRhythm : Technically limited study due to body habitus. Conclusion lvef 40-45% by visual estimate hypokietic septum RV moderate enlarged trivial to small pericardial effusion limited study mild mitral regurg
[2024-01-01] MEDS: SODIUM CHLORIDE 0.9% 1,000 ML IV ONE (09:08)
--- NOTE | 2024-01-01 10:13 | DVHPN2 ---
Progress Note Date Seen: Jan 01, 2024 Medical Necessity Reason Pt with a Central, PICC or Fol: Yes The following are medically ne: Kendall Catheter Reason for kendall catheter: Strict I&O Subjective Patient reports: Feels better Other Systems: still on low dose pressors Objective vital signs Vital Sign Date Time Temp Pulse Resp B/P (MAP) Pulse Ox O2 Delivery O2 Flow Rate FiO2 01/01/24 10:01 80 01/01/24 10:01 20 98 Nasal Cannula* 2 28 01/01/24 06:30 118/68 (85) 01/01/24 04:45 98.1 98.1 Total Intake and Output 12/31/23 12/31/23 01/01/24 14:59 22:59 06:59 Intake Total 1508 ml 1340 ml 946.0 ml Output Total 400 ml 460 ml Balance 1508 ml 940 ml 486.0 ml medications Current Medications Medications Dose Ordered Sig/Brody Route Start Time Stop Time Status Last Admin Dose Admin Nitroglycerin 0.4 mg Q5MINP PRN SL 12/30/23 06:45 Morphine Sulfate 2 mg Q30M PRN IV 12/30/23 06:45 Albuterol 2.5 mg Q6HR NEB 12/30/23 12:00 01/01/24 06:01 2.5 MG Ipratropium [place] 0.5 mg Q6HP NEB 12/30/23 12:00 01/01/24 06:01 0.5 MG Diagnostic Test (Pha) 1 strip ACHS 12/30/23 07:00 01/01/24 06:22 1 STRIP Insulin Human Regular ACHS SC 12/30/23 07:00 01/01/24 06:11 8 UNITS Dextrose 50 ml UD PRN IV 12/30/23 07:00 Norepinephrine Bitartrate 250 ml @ 3.75 mls/hr Q24H IV 12/30/23 07:00 01/01/24 00:34 7.5 MLS/HR Cefepime HCl 50 ml @ 12.5 mls/hr Q12HR IV 12/30/23 22:00 01/01/24 09:48 12.5 MLS/HR Atorvastatin Calcium 20 mg HS PO 12/30/23 22:00 12/31/23 22:47 20 MG Pantoprazole Sodium 40 mg DAILY IV 12/30/23 11:30 01/01/24 09:47 40 MG Melatonin 10 mg HS PRN PO 12/30/23 22:45 12/31/23 22:47 10 MG Hydrocortisone Sodium Succinate 100 mg Q12HR IV 12/31/23 18:00 01/01/24 09:47 100 MG Heparin Sodium/ Dextrose 250 ml @ 9 mls/hr Q24H IV 01/01/24 03:15 01/01/24 03:17 9 MLS/HR Examination: GENERAL:Abnormal, HEENT:Abnormal, LUNGS:Abnormal, CVS:Abnormal, ABDOMEN:Abnormal laboratory and microbiology Laboratory Tests 01/01/24 02:20 Test 01/01/24 02:20 Range/Units Serum Glucose 337 H 74-106 mg/dL Microbiology Date/Time Source Procedure Growth Status 12/30/23 16:20 Urine - [place] Urine Culture - Final Escherichia coli Complete 12/30/23 14:30 Nose MRSA Screen - Final Complete 12/30/23 03:09 Blood Blood Culture - Preliminary NO GROWTH AFTER 48 HOURS OF INCUBATION. Resulted Problem List/Assessment/Plan Problem List/Assessment/Plan nstemi suspected cad urosepsis hypotension mild CHF with NYHA class III HF dc heparin gtt start pavix, start atorvastatin for HF: nothign for now given pressors , eventual low dose coreg and acei on DC Plan discussed with: Patient Date of Service: Jan 01, 2024 Billing Provider: CARYN SCHMIDT MD Common Visit Codes: NOT BILLABLE CARYN SCHMIDT MD Jan 01, 2024 10:13
--- NOTE | 2024-01-01 10:28 | DVHPN2 ---
Progress Note - Dictate Date Seen: Jan 01, 2024 Medical Necessity Reason Pt with a Central, PICC or Fol: Yes The following are medically ne: Kendall Catheter Reason for kendall catheter: Strict I&O Subjective Patient feeling well today. No new complaints. vital signs Vital Sign Date Time Temp Pulse Resp B/P (MAP) Pulse Ox O2 Delivery O2 Flow Rate FiO2 01/01/24 10:01 80 01/01/24 10:01 20 98 Nasal Cannula* 2 28 01/01/24 06:30 118/68 (85) 01/01/24 04:45 98.1 98.1 Total Intake and Output 12/31/23 12/31/23 01/01/24 15:00 23:00 07:00 Intake Total 1502 ml 1354.5 ml 936.0 ml Output Total 400 ml 460 ml Balance 1502 ml 954.5 ml 476.0 ml medications Current Medications Medications Dose Ordered Sig/[place]dy Route Start Time Stop Time Status Last Admin Dose Admin Nitroglycerin 0.4 mg Q5MINP PRN SL 12/30/23 06:45 Morphine Sulfate 2 mg Q30M PRN IV 12/30/23 06:45 Albuterol 2.5 mg Q6HR NEB 12/30/23 12:00 01/01/24 06:01 2.5 MG Ipratropium [place] 0.5 mg Q6HP NEB 12/30/23 12:00 01/01/24 06:01 0.5 MG Diagnostic Test (Pha) 1 strip ACHS 12/30/23 07:00 01/01/24 06:22 1 STRIP Insulin Human Regular ACHS SC 12/30/23 07:00 01/01/24 06:11 8 UNITS Dextrose 50 ml UD PRN IV 12/30/23 07:00 Norepinephrine Bitartrate 250 ml @ 3.75 mls/hr Q24H IV 12/30/23 07:00 01/01/24 00:34 7.5 MLS/HR Cefepime HCl 50 ml @ 12.5 mls/hr Q12HR IV 12/30/23 22:00 01/01/24 09:48 12.5 MLS/HR Atorvastatin Calcium 20 mg HS PO 12/30/23 22:00 12/31/23 22:47 20 MG Pantoprazole Sodium 40 mg DAILY IV 12/30/23 11:30 01/01/24 09:47 40 MG Melatonin 10 mg HS PRN PO 12/30/23 22:45 12/31/23 22:47 10 MG Hydrocortisone Sodium Succinate 100 mg Q12HR IV 12/31/23 18:00 01/01/24 09:47 100 MG Clopidogrel Bisulfate 75 mg DAILY PO 01/02/24 10:00 UNV objective General appearance: No acute distress Respiratory: Fine bibasilar crackles. Cardiovascular: Regular rate and rhythm, no murmurs. No edema Abdomen: Soft, nondistended, nontender, bowel sounds present. No signs of acute abdomen. MSK: Normal range of motion. Neuro: Alert, no neurological deficits Psych: Appropriate mood and affect. laboratory and microbiology Laboratory Tests 01/01/24 02:20 Test 01/01/24 02:20 Range/Units Serum Glucose 337 H 74-106 mg/dL Problem List 1. Septic Shock 2. NSTEMI 3. DERECK 4. Type 2 DM 5. UTI 6. Acute Respiratory Failure 7. Acute CHF Exacerbation, Reduced Systolic 40-45% NYSA Class III Assessment/Plan -Continue Levophed with titration to MAP greater than 65. Decrease hydrocortisone to 50 mg every 12. Continue broad-spectrum antibiotics vancomycin and cefepime. Blood cultures NGTD. Respiratory cultures pending. Urine cultures show E. Coli. WBC elevation likely exacerbated by hydrocortisone use. Infectious disease consulted. -Additional 1 L NS at 250 mL/h. Patient has received a total of 4 L of IV fluids since admission. IV fluids were stopped due to concern of respiratory failure. -DC heparin drip. Troponins downtrending. Cardiology consulted. TTE shows reduced systolic EF 40-45%. Start plavix and aspirin, coreg and ACEi once shock resolves. -DERECK improving. Ultrasound renal does not reveal any signs of hydronephrosis. Continue Kendall for urinary retention. -Insulin sliding scale for type 2 diabetes. -Goal pulse ox 90 to 92%. -Physical therapy pending. -LFTs uptrending. May be secondary to hypotension. US abdomen ordered, hepatitis, HIV, Tylenol level, alcohol level, UDS. -Protonix 40 mg daily. -Full code. Discussed with the patient at bedside with POA . Plan discussed with: Patient IRENA PEGUERO Jan 01, 2024 10:28
[2024-01-01 10:49] LABS: INR 1.08 (0.9-1.15); Partial Thromboplastin Time 67.2 SEC (24.5-34.5); Prothrombin Time 11.4 sec (9.3-11.8)
[2024-01-01 12:30] LABS: Hepatitis B Surface Antigen Negative (Negative)
--- NOTE | 2024-01-01 12:42 | MEDREC ---
[facility] ASP Intervention Section I [facility] ASP Intervention: Deescalate AB based on CS (PLEASE CONSIDER DE-ESCALATION BASED ON CULTURE RESULTS ) PADMAJA HAHN PHARMACIST Jan 01, 2024 12:42
[2024-01-01 12:50] LABS: Hepatitis A Ab IgM Negative
[2024-01-01 12:51] LABS: Hepatitis B Core IgM Negative; Hepatitis C Antibody Negative (Negative)
[2024-01-01] MEDS ORDERED: DIAZ10TA3 PO (16:22)
[2024-01-01] MEDS: HYDROCORTISONE SOD SUCC 100 MG/2ML INJ VIAL IV SCH (16:52)
--- NOTE | 2024-01-01 17:35 | DVH ---
EXAM: US ABDOMEN LIMITED CLINICAL HISTORY: elevated lfts TECHNIQUE: Grayscale and limited color flow doppler ultrasound of the right upper quadrant is perfor med. COMPARISON: None Findings: Liver measures 16.5 cm in length with normal echotexture and contour. No evidence of focal hepatic le sions or intra- or extrahepatic ductal dilatation. Common bile duct measures 0.3 cm in diameter. Norm al hepatopedal flow noted within the portal vein. No perihepatic free fluid is noted. Gallbladder wall thickness measuring 0.4 cm. No evidence of shadowing calculi, biliary sludge or per icholecystic fluid. Negative sonographic Cordon's sign. Pancreas not well-visualized due to overlying bowel gas. Right kidney measures 9.9 cm with normal contours, echotexture and cortical thickness. No evidence of hydronephrosis, calculi, cystic or solid renal lesions. Partially visualized inferior vena cava unremarkable. Trace right pleural effusion. Impression: 1. No evidence of acute right upper quadrant abnormalities. 2. Gallbladder wall thickening without other sonographic evidence of acute cholecystitis. 3. Trace right pleural effusion.
--- NOTE | 2024-01-01 20:26 | DVHINCON2 ---
Date of service: Dec 31, 2023 Allergies: Coded Allergies: NO KNOWN ALLERGIES (Unverified , 12/30/23) Home Meds Reported Medications Diazepam (Diazepam) 10 Mg Tab, 1 TAB PO DAILY for 30 Days, #30 01/01/24 Metformin Hydrochloride (Metformin Hcl) 500 Mg Tab, 1 TAB PO BID for 90 Days, #180 12/31/23 Tamsulosin Hcl (Flomax) 0.4 Mg Cap, 0.4 MG PO DAILY, CAP 12/31/23 Rosuvastatin Calcium (Crestor) 20 Mg Tab, 1 TAB PO HS for 90 Days 12/31/23 Valsartan-Hydrochlorothiazide (Diovan Hct) 160 /12.5 Tab, 1 TAB PO DAILY, #30 TAB 5 Refills 12/31/23 Current Medications Current Medications Medications (Trade) Dose Ordered Sig/Brody Route PRN Reason Start Time Stop Time Status Last Admin Hydrocortisone Sodium Succinate (Solu-CORTEF INJECTION) 100 mg Q12HR IV 12/31/23 22:00 12/31/23 09:30 DC Heparin Sodium/ Dextrose 250 ml @ 9 mls/hr Q24H IV 01/01/24 03:15 01/01/24 10:12 DC 01/01/24 03:17 Clopidogrel Bisulfate (Plavix) 75 mg DAILY PO 01/02/24 10:00 Hydrocortisone Sodium Succinate (Solu-CORTEF INJECTION) 50 mg Q12HR IV 01/01/24 18:00 01/01/24 16:52 Vital Signs Vital Signs Date Time Temp Pulse Resp B/P (MAP) Pulse Ox O2 Delivery O2 Flow Rate FiO2 01/01/24 18:30 98.4 84 17 127/73 (91) 95 98.4 01/01/24 17:57 Nasal Cannula* 2 28 Labs/Diagnostic Data Labs Test 01/01/24 16:44 01/01/24 10:44 01/01/24 09:00 01/01/24 02:20 Range/Units POC Glucose 264 H 70-106 mg/dl Plasma/Serum Blood Alcohol < 3.0 <10 mg/dL Hepatitis A IgM Antibody Negative Hepatitis B Surface Antigen Negative Negative Hepatitis B Core IgM Antibody Negative Hepatitis C Antibody Negative Negative HIV (1&2) Antibody Negative Negative Prothrombin Time 11.4 9.3-11.8 sec Prothrombin Time INR 1.08 0.9-1.15 Activated Partial Thromboplast Time 67.2 H 24.5-34.5 SEC White Blood Count 21.4 H 4.4-10.8 10^3/uL Red Blood Count 4.11 L 4.5-5.90 10^6/uL Hemoglobin 12.1 L 13.5-17.5 g/dL Hematocrit 36.6 L 41.0-53.0 % Mean Corpuscular Volume 88.9 80.0-100.0 fL Mean Corpuscular Hemoglobin 29.4 28.0-32.0 pg Mean Corpuscular Hemoglobin Concent 33.1 32.0-36.0 g/dL Red Cell Distribution Width 14.1 11.8-14.3 % Platelet Count 152 140-450 10^3/uL Mean Platelet Volume 8.0 6.9-10.8 fL Neutrophils (%) (Auto) 37.0-80.0 % Lymphocytes (%) (Auto) 10.0-50.0 % Monocytes (%) (Auto) 0.0-12.0 % Basophils (%) (Auto) 0.0-2.0 % Neutrophils # (Auto) 1.6-8.6 10 ^3/uL Lymphocytes # (Auto) 0.4-5.4 10 ^3/uL Monocytes # (Auto) 0-1.3 10 ^3/uL Differential Total Cells Counted 100.0 100 Neutrophils % (Manual) 87 H 37.0-80.0 Band Neutrophils % (Manual) 3 Lymphocytes % (Manual) 4 L 10.0-50.0 Monocytes % (Manual) 6 0-12 Eosinophils % (Manual) 0 0-7 Basophils % (Manual) 0 0.0-2.0 Metamyelocytes % (manual) 0 Myelocytes % (Manual) 0 Promyelocytes % (Manual) 0 Blast Cells % (Manual) 0 Reactive Lymphocytes 0 Platelet Estimate Adequate Clumped Platelets Few Alyse Cells Few Sodium Level 138 136-145 mmol/L Potassium Level 4.2 3.5-5.1 mmol/L Chloride Level 109 H 98-107 mmol/L Carbon Dioxide Level 22 20-31 mmol/L Anion Gap 7 5-15 Blood Urea Nitrogen 33 #H 9-23 mg/dL Creatinine 1.81 H 0.700-1.30 mg/dL Glomerular Filtration Rate Calc 36 >90 mL/min BUN/Creatinine Ratio 18.2 10.0-20.0 Serum Glucose 337 H 74-106 mg/dL Calcium Level 8.5 L 8.7-10.4 mg/dL Phosphorus Level 2.0 L 2.4-5.1 mg/dL Magnesium Level 2.3 1.6-2.6 mg/dL Total Bilirubin 0.3 0.2-1.0 mg/dL Aspartate Amino Transferase (AST) 120 H 13-40 U/L Alanine Aminotransferase (ALT) 112 H 7-40 U/L Alkaline Phosphatase 174 H 46-116 U/L Total Protein 5.5 L 5.7-8.2 g/dL Albumin 3.7 3.2-4.8 g/dL Test 12/31/23 06:03 12/31/23 03:20 12/30/23 16:20 12/30/23 03:37 Range/Units Lactic Acid Level 3.5 *H 0.4-2.0 mmol/L Uric Acid 3.2 L 3.7-9.2 mg/dL Direct Bilirubin 0.2 <0.3 mg/dL Lactate Dehydrogenase 299 H 120-246 U/L Troponin I High Sensitivity 732 *H </=54 ng/L Urine Color Colorless Yellow Urine Clarity Turbid H Clear Urine pH 5.5 5.0-9.0 Urine Specific Orange 1.007 1.001-1.035 Urine Protein 1+ H Negative Urine Ketones Trace Negative Urine Blood 2+ H Negative /uL Urine Nitrite Negative Negative Urine Bilirubin Negative Negative Urine Urobilinogen Normal Negative mg/dL Urine Leukocyte Esterase Trace Negative /uL Urine RBC 7 0 - 3 /hpf Urine WBC 11 0 - 3 /hpf Urine Squamous Epithelial Cells Few <5 /hpf Urine Bacteria Few H None Seen /hpf Urine Mucus Few None Seen Urine Yeast (Budding) Moderate None Seen /hpf Urine Creatinine 38.87 30.0-125.0 mg/dL Urine Sodium < 10 L 40-220 mmol/L Urine Glucose 3+ H Normal mg/dL Urine Total Protein 60.6 H 1-14 mg/dL Influenza Type A Antigen Negative Negative Influenza Type B Antigen Negative Negative SARS-CoV-2 Antigen (Rapid) Negative NEGATIVE Test 12/30/23 03:26 12/30/23 03:09 Range/Units Urine WBC Clumps Present None Seen /hpf Urine Hyaline Casts Mod 0 - 2 /lpf Urine Granular Casts Few 0 /lpf Eosinophils (%) (Auto) 0.1 0.0-7.0 % Eosinophils # (Auto) 0 0-0.8 10 ^3/uL Basophils # (Auto) 0 0-0.2 10 ^3/uL Nucleated Red Blood Cells 0.2 % Microbiology Date/Time Source Procedure Growth Status 12/30/23 16:20 Urine - [place] Urine Culture - Final Escherichia coli Complete 12/30/23 14:30 Nose MRSA Screen - Final Complete 12/30/23 03:09 Blood Blood Culture - Preliminary NO GROWTH AFTER 48 HOURS OF INCUBATION. Resulted Problems(with codes): (1) Septic shock (2) Urinary tract infection (3) COPD exacerbation (4) NSTEMI (non-ST elevated myocardial infarction) (5) PNA (pneumonia) (6) Acute kidney injury superimposed on CKD Plan/Recommendation ASSESSMENT AND PLAN: ID Problem List: COPD Diabetes mellitus Coronary artery disease UTI Pneumonia Septic shock DERECK Ischemic hepatopathy Assessment: This is an 88 y.o. male with a past medical history of COPD, diabetes mellitus, and coronary artery disease, who presents with generalized weakness, shortness of breath, fever, and dysuria. On admission, he was hypotensive and tachycardic and was found to have a UTI and pneumonia. Elevated troponin levels were noted. Plan: Continue empiric antibiotic therapy with vancomycin and cefepime. Monitor blood cultures. Sputum culture recommended. Urine culture confirmed E. coli sensitive to ceftriaxone. Recommend CT abdomen/pelvis to further evaluate once the patient clinically improves. Continue ICU support and pressures for hypotension in the setting of septic shock. Hold off further diagnostics until renal function improves. Patient screened for HIV, hepatitis, influenza A&B, and COVID; all serologies negative. Patient remains on 2 mcg/min of Levafed for blood pressure support. No noted fevers, breathing well on 2 liters nasal cannula. Authorized and Performed by:jesus burton MD Total critical care time: Approximately 76 minutes Due to a high probability of clinically significant, life threatening deterioration, the patient required my highest level of preparedness to intervene emergently and I personally spent this critical care time directly and personally managing the patient. This critical care time included obtaining a history; examining the patient; pulse oximetry; ordering and review of studies; arranging urgent treatment with development of a management plan; evaluation of patient's response to treatment; frequent reassessment; and, discussions with other providers. This critical care time was performed to assess and manage the high probability of imminent, life-threatening deterioration that could result in multi-organ failure. It was exclusive of separately billable procedures and treating other patients and teaching time. Thank you for interesting consult. ID will continue to follow. Please contact Infectious disease for any questions or concerns. Jesus Burton M.D. [facility] Ph: ? ? Teams text: [email or web address] - History: History obtained from: patient Mr. Fabrizio Olivarez is an 88 y.o. male with a past medical history of COPD, diabetes mellitus, and coronary artery disease, who presents with generalized weakness, shortness of breath, fever, and dysuria. Patient was hypotensive on admission. Tachycardia (140 bpm) and was found to have a UTI and pneumonia, with elevated troponin levels in the 1999s. Review of Systems: -CONSTITUTIONAL: Denies weight loss, fever, and chills. -HEENT: Denies changes in vision and hearing. -RESPIRATORY: Denies SOB and cough. -CV: Denies palpitations and CP. -GI: Denies abdominal pain, nausea, vomiting, and diarrhea. -: Denies dysuria and urinary frequency. -MSK: Denies myalgia and joint pain. -SKIN: Denies rash and pruritus. -NEUROLOGICAL: Denies headache and syncope. -PSYCHIATRIC: Denies recent changes in mood. Denies anxiety and depression. Past Medical History: -COPD- -Diabetes mellitus- -Coronary artery disease- Past Surgical History: History reviewed. No pertinent surgical history. Home Medications: Metformin Rosuvastatin Valsartan Hydrochlorothiazide Diazepam Allergies: No Known Allergies Family History:unknown Social History: -Smoking status: Never -Smokeless tobacco: Never Objective: Vital Signs on Arrival: Temp: 98.4 F BP: 121/83 Pulse: 65 Resp: 19 SpO2: 96% on 2L/min nasal cannula Most Recent Vital Signs: Temp: 98.4 F BP: 121/83 Pulse: 65 Resp: 19 SpO2: 96% on 2L/min nasal cannula Physical Exam: General: NAD Neck: Supple. No masses. HEENT: PERRL. Normal lids and conjunctiva. Moist mucous membranes. Oropharynx without lesions, exudates, or excessive erythema. Normal appearance of the external aspects of the nose and ears. Heart: Regular rhythm, normal rate. No murmur. No lower extremity edema. Lungs: Normal respiratory effort. Clear to auscultation bilaterally. No wheezes. No crackles. Abdomen: Soft. Non-tender. Non-distended. No masses or abdominal hernia. Msk: No digital cyanosis. Normal strength and tone in all 4 limbs. Skin: Warm and dry, no rashes. Neuro: Alert. No facial droop or slurred speech. Extra-ocular movements intact. Sensation intact to soft touch in all 4 limbs. Psych: Appropriate mood. Full affect. Oriented to person, place, ti me, and situation. Diagnostic Studies: -White count: 24 -Hemoglobin: 12.8 -Platelet count: 149 -Creatinine: 1.81 -BUN: 33 -ALT: 112 -Alkaline Phosphate: 174 -Bilirubin: 0.3 Pertinent Imaging: -Chest X-ray: No pneumothorax. Normal lung volumes. The lungs are grossly clear. The cardiac silhouette is within normal limits. No pulmonary vascular congestion. No pleural effusion. -Right upper quadrant ultrasound: No acute evidence of right upper quadrant abnormalities. Gallbladder wall thickening without other sonographic evidence for acute cholecystitis. -Renal ultrasound: No hydronephrosis. -Right lower lobe opacity: May reflect pneumonia or atelectasis. Microbiology: -Urine culture: E. coli, sensitive to ceftriaxone. -Blood cultures: No growth to date after 24 hours. Plan discussed with: Patient JESUS BURTON MD Jan 01, 2024 20:26
--- NOTE | 2024-01-01 20:57 | DVHPN2 ---
Progress Note Date Seen: Jan 01, 2024 Medical Necessity Reason Pt with a Central, PICC or Fol: Yes The following are medically ne: Kendall Catheter Reason for kendall catheter: Strict I&O Subjective Patient reports: No new complaints, Feels better Review of Systems: HEENT:Normal, CVS:Normal, RESPIRATORY:Normal, GI:Normal, :Normal, MSK:Normal, NEURO:Normal Objective vital signs Vital Sign Date Time Temp Pulse Resp B/P (MAP) Pulse Ox O2 Delivery O2 Flow Rate FiO2 01/01/24 18:30 98.4 84 17 127/73 (91) 95 98.4 01/01/24 17:57 Nasal Cannula* 2 28 Total Intake and Output 12/31/23 12/31/23 01/01/24 15:00 23:00 07:00 Intake Total 1502 ml 1354.5 ml 936.0 ml Output Total 400 ml 460 ml Balance 1502 ml 954.5 ml 476.0 ml medications Current Medications Medications Dose Ordered Sig/Brody Route Start Time Stop Time Status Last Admin Dose Admin Nitroglycerin 0.4 mg Q5MINP PRN SL 12/30/23 06:45 Morphine Sulfate 2 mg Q30M PRN IV 12/30/23 06:45 Albuterol 2.5 mg Q6HR NEB 12/30/23 12:00 01/01/24 17:58 2.5 MG Ipratropium [place] 0.5 mg Q6HP NEB 12/30/23 12:00 01/01/24 17:57 0.5 MG Diagnostic Test (Pha) 1 strip ACHS 12/30/23 07:00 01/01/24 16:47 1 STRIP Insulin Human Regular ACHS SC 12/30/23 07:00 01/01/24 16:47 6 UNITS Dextrose 50 ml UD PRN IV 12/30/23 07:00 Norepinephrine Bitartrate 250 ml @ 3.75 mls/hr Q24H IV 12/30/23 07:00 01/01/24 00:34 7.5 MLS/HR Cefepime HCl 50 ml @ 12.5 mls/hr Q12HR IV 12/30/23 22:00 01/01/24 09:48 12.5 MLS/HR Atorvastatin Calcium 20 mg HS PO 12/30/23 22:00 12/31/23 22:47 20 MG Pantoprazole Sodium 40 mg DAILY IV 12/30/23 11:30 01/01/24 09:47 40 MG Melatonin 10 mg HS PRN PO 12/30/23 22:45 12/31/23 22:47 10 MG Clopidogrel Bisulfate 75 mg DAILY PO 01/02/24 10:00 Hydrocortisone Sodium Succinate 50 mg Q12HR IV 01/01/24 18:00 01/01/24 16:52 50 MG Examination: GENERAL:Normal, HEENT:Normal, NECK:Normal, LUNGS:Normal, CVS:Normal, ABDOMEN:Normal, MSK:Normal, SKIN:Normal, NEURO:Normal, :Normal laboratory and microbiology Laboratory Tests 01/01/24 02:20 Test 01/01/24 02:20 Range/Units Serum Glucose 337 H 74-106 mg/dL Microbiology Date/Time Source Procedure Growth Status 12/30/23 16:20 Urine - [place] Urine Culture - Final Escherichia coli Complete 12/30/23 14:30 Nose MRSA Screen - Final Complete 12/30/23 03:09 Blood Blood Culture - Preliminary NO GROWTH AFTER 48 HOURS OF INCUBATION. Resulted Problem List/Assessment/Plan Problem List/Assessment/Plan 1) hemodynamically mediated acute kidney injury and vasomotor nephropathy in the setting of shock. 2) possible NSTEMI 3) CKD stage III? , approximally 500 mg of proteinuria 4) elevated anion gap metabolic acidosis, lactic acidosis 5) possible complicated urinary tract infection recs on levophed 2mcg stable renal function Plan discussed with: Patient, Spouse, Daughter KENTON ASHRAF MD Jan 01, 2024 20:57
--- NOTE | 2024-01-01 22:09 | DVHPN2 ---
Consult Progress Note Date Seen: Jan 01, 2024 Subjective Patient reports: Feels better (mentating well , breathing well without cough or shortness of breath however has some diffuse wheezing throught lungs. Started on Heparin drip for his elevated traponin) Objective vital signs Vital Sign Date Time Temp Pulse Resp B/P (MAP) Pulse Ox O2 Delivery O2 Flow Rate FiO2 01/01/24 18:30 98.4 84 17 127/73 (91) 95 98.4 01/01/24 17:57 Nasal Cannula* 2 28 Total Intake and Output 12/31/23 12/31/23 01/01/24 15:00 23:00 07:00 Intake Total 1502 ml 1354.5 ml 936.0 ml Output Total 400 ml 460 ml Balance 1502 ml 954.5 ml 476.0 ml medications Current Medications Medications Dose Ordered Sig/Brody Route Start Time Stop Time Status Last Admin Dose Admin Nitroglycerin 0.4 mg Q5MINP PRN SL 12/30/23 06:45 Morphine Sulfate 2 mg Q30M PRN IV 12/30/23 06:45 Albuterol 2.5 mg Q6HR NEB 12/30/23 12:00 01/01/24 17:58 2.5 MG Ipratropium [place] 0.5 mg Q6HP NEB 12/30/23 12:00 01/01/24 17:57 0.5 MG Diagnostic Test (Pha) 1 strip ACHS 12/30/23 07:00 01/01/24 16:47 1 STRIP Insulin Human Regular ACHS SC 12/30/23 07:00 01/01/24 16:47 6 UNITS Dextrose 50 ml UD PRN IV 12/30/23 07:00 Norepinephrine Bitartrate 250 ml @ 3.75 mls/hr Q24H IV 12/30/23 07:00 01/01/24 00:34 7.5 MLS/HR Cefepime HCl 50 ml @ 12.5 mls/hr Q12HR IV 12/30/23 22:00 01/01/24 09:48 12.5 MLS/HR Atorvastatin Calcium 20 mg HS PO 12/30/23 22:00 12/31/23 22:47 20 MG Pantoprazole Sodium 40 mg DAILY IV 12/30/23 11:30 01/01/24 09:47 40 MG Melatonin 10 mg HS PRN PO 12/30/23 22:45 12/31/23 22:47 10 MG Clopidogrel Bisulfate 75 mg DAILY PO 01/02/24 10:00 Hydrocortisone Sodium Succinate 50 mg Q12HR IV 01/01/24 18:00 01/01/24 16:52 50 MG Physical Exam: General: NAD Neck: Supple. No masses. HEENT: PERRL. Normal lids and conjunctiva. Moist mucous membranes. Oropharynx without lesions, exudates, or excessive erythema. Normal appearance of the external aspects of the nose and ears. Heart: Regular rhythm, normal rate. No murmur. No lower extremity edema. Lungs: Normal respiratory effort. Clear to auscultation bilaterally. No wheezes. No crackles. Abdomen: Soft. Non-tender. Non-distended. No masses or abdominal hernia. Msk: No digital cyanosis. Normal strength and tone in all 4 limbs. Skin: Warm and dry, no rashes. Neuro: Alert. No facial droop or slurred speech. Extra-ocular movements intact. Sensation intact to soft touch in all 4 limbs. Psych: Appropriate mood. Full affect. Oriented to person, place, time, and situation. laboratory and microbiology Laboratory Tests 01/01/24 02:20 Test 01/01/24 02:20 Range/Units Serum Glucose 337 H 74-106 mg/dL Problem List/Assessment/Plan Problems(with codes): (1) Septic shock (2) Urinary tract infection (3) COPD exacerbation (4) NSTEMI (non-ST elevated myocardial infarction) (5) PNA (pneumonia) (6) Acute kidney injury superimposed on CKD Problem List/Assessment/Plan ASSESSMENT AND PLAN: ID Problem List: COPD Diabetes mellitus Coronary artery disease UTI Pneumonia Septic shock DERECK Ischemic hepatopathy Assessment: This is an 88 y.o. male with a past medical history of COPD, diabetes mellitus, and coronary artery disease, who presents with generalized weakness, shortness of breath, fever, and dysuria. On admission, he was hypotensive and tachycardic and was found to have a UTI and pneumonia. Elevated troponin levels were noted. 12/31: TTE shows a junction fraction of 40-45% with a hypokinetic septum , right ventricle moderately enlarged , small pericardial effusion. Cardiology is recommending outpatient management for NSTEMI and treatment for UTI Plan: Agree with stopping vancomycin Continue cefepime. follow up on sputum cultures and blood cultures Urine culture confirmed E. coli sensitive to ceftriaxone. Recommend CT abdomen/pelvis to further evaluate once the patient clinically improves. Continue ICU support and pressures for hypotension in the setting of septic shock. Hold off further diagnostics until renal function improves. Patient screened for HIV, hepatitis, influenza A&B, and COVID; all serologies negative. Patient remains on 2 mcg/min of Levafed for blood pressure support. No noted fevers, breathing well on 2 liters nasal cannula. Authorized and Performed by:vladimir donovan MD Total critical care time: Approximately 75 minutes Due to a high probability of clinically significant, life threatening deterioration, the patient required my highest level of preparedness to intervene emergently and I personally spent this critical care time directly and personally managing the patient. This critical care time included obtaining a history; examining the patient; pulse oximetry; ordering and review of studies; arranging urgent treatment with development of a management plan; evaluation of patient's response to treatment; frequent reassessment; and, discussions with other providers. This critical care time was performed to assess and manage the high probability of imminent, life-threatening deterioration that could result in multi-organ failure. It was exclusive of separately billable procedures and treating other patients and teaching time. Thank you for interesting consult. ID will continue to follow. Please contact Infectious disease for any questions or concerns. Plan discussed with: VLADIMIR Matthews MD Jan 01, 2024 22:09
[2024-01-02] VITALS (109 sets, daily range): BP systolic 83–148; BP diastolic 41–84; PULSE 48–84; RESP 9–24; TEMP 97.6–98.7; O2SAT 90–100
[2024-01-02 03:26] LABS: Hematocrit 35.2 % (41.0-53.0); Mean Corpuscular Hemoglobin 29.7 pg (28.0-32.0); Mean Corpuscular Volume 87.4 fL (80.0-100.0); Platelet Count (auto) 150 10^3/uL (140-450); Red Blood Cells 4.03 10^6/uL (4.5-5.90); Red Cell Distribution Width 13.7 % (11.8-14.3); White Blood Cell 15.2 10^3/uL (4.4-10.8)
[2024-01-02 03:31] LABS: Basophils % (manual) 0 (0.0-2.0); Blast Cells 0; Eosinophils % (manual) 0 (0-7); Promyelocytes % 0
[2024-01-02 03:49] LABS: Alanine Aminotransferase 199 U/L (7-40); Albumin 3.5 g/dL (3.2-4.8); Alkaline Phosphatase 175 U/L (46-116); Anion Gap 6 (5-15); Aspartate Aminotransferase 115 U/L (13-40); BUN/Creatinine Ratio 24.4 (10.0-20.0); Bilirubin, Total 0.3 mg/dL (0.2-1.0); Blood Urea Nitrogen 39 mg/dL (9-23); Calcium 8.6 mg/dL (8.7-10.4); Carbon Dioxide 24 mmol/L (20-31); Chloride 109 mmol/L (98-107); Glucose 265 mg/dL (74-106); Potassium 4.5 mmol/L (3.5-5.1); Sodium 139 mmol/L (136-145); Total Protein 5.4 g/dL (5.7-8.2)
[2024-01-02 05:48] LABS: Band Neutrophils % (manual) 3; Lymphocytes % (manual) 5 (10.0-50.0); Metamyelocytes % 3; Myelocytes % 2; Reactive Lymphocytes 1
[2024-01-02 05:49] LABS: Large Platelets FEW; Monocytes % (manual) 6 (0-12); Platelet Estimate Adequate
[2024-01-02] MEDS: INSULIN LANTUS (GLARGINE) 1 /0.01ml (100units/ml) SC SCH (08:45)
[2024-01-02] MEDS: HYDROCORTISONE SOD SUCC 100 MG/2ML INJ VIAL IV ONE (09:00)
[2024-01-02] MEDS: SODIUM CHLORIDE 0.9% 1,000 ML IV ONE (09:04)
[2024-01-02] MEDS: CLOPIDOGREL BISULFATE 75 MG TAB PO SCH (09:04)
[2024-01-02] MEDS: MIDODRINE HCL 10 MG TAB PO SCH (11:07)
--- NOTE | 2024-01-02 11:32 | DVHPN2 ---
Progress Note - Dictate Date Seen: Jan 02, 2024 Medical Necessity Reason Pt with a Central, PICC or Fol: Yes The following are medically ne: Kendall Catheter Reason for kendall catheter: Strict I&O Subjective Patient feeling well today. No new complaints. Ate all of his breakfast. vital signs Vital Sign Date Time Temp Pulse Resp B/P (MAP) Pulse Ox O2 Delivery O2 Flow Rate FiO2 01/02/24 11:15 98.4 66 13 119/59 (79) 96 98.4 01/02/24 09:42 Nasal Cannula* 2 28 Total Intake and Output 01/01/24 01/01/24 01/02/24 15:00 23:00 07:00 Intake Total 705.25 ml 342.50 ml 90.00 ml Output Total 500 ml 600 ml Balance 705.25 ml -157.50 ml -510.00 ml medications Current Medications Medications Dose Ordered Sig/Brody Route Start Time Stop Time Status Last Admin Dose Admin Nitroglycerin 0.4 mg Q5MINP PRN SL 12/30/23 06:45 Morphine Sulfate 2 mg Q30M PRN IV 12/30/23 06:45 Albuterol 2.5 mg Q6HR NEB 12/30/23 12:00 01/02/24 07:12 2.5 MG Ipratropium [place] 0.5 mg Q6HP NEB 12/30/23 12:00 01/02/24 07:11 0.5 MG Diagnostic Test (Pha) 1 strip ACHS 12/30/23 07:00 01/02/24 11:05 1 STRIP Insulin Human Regular ACHS SC 12/30/23 07:00 01/02/24 11:04 6 UNITS Dextrose 50 ml UD PRN IV 12/30/23 07:00 Norepinephrine Bitartrate 250 ml @ 3.75 mls/hr Q24H IV 12/30/23 07:00 01/01/24 00:34 7.5 MLS/HR Cefepime HCl 50 ml @ 12.5 mls/hr Q12HR IV 12/30/23 22:00 01/02/24 09:04 12.5 MLS/HR Atorvastatin Calcium 20 mg HS PO 12/30/23 22:00 01/01/24 22:08 20 MG Pantoprazole Sodium 40 mg DAILY IV 12/30/23 11:30 01/02/24 09:04 40 MG Melatonin 10 mg HS PRN PO 12/30/23 22:45 01/01/24 22:08 10 MG Clopidogrel Bisulfate 75 mg DAILY PO 01/02/24 10:00 01/02/24 09:04 75 MG Insulin Glargine 8 units QAM SC 01/02/24 08:45 01/02/24 08:45 8 UNITS Midodrine 10 mg TID@0600,1200,1800 PO 01/02/24 12:00 01/02/24 11:07 10 MG objective General appearance: No acute distress Respiratory: Fine bibasilar crackles. Cardiovascular: Regular rate and rhythm, no murmurs. No edema Abdomen: Soft, nondistended, nontender, bowel sounds present. No signs of acute abdomen. MSK: Normal range of motion. Neuro: Alert, no neurological deficits Psych: Appropriate mood and affect. laboratory and microbiology Laboratory Tests 01/02/24 03:04 Test 01/02/24 03:04 Range/Units Serum Glucose 265 H 74-106 mg/dL Problem List 1. Septic Shock 2. NSTEMI 3. DERECK 4. Type 2 DM 5. UTI 6. Acute Respiratory Failure 7. Acute CHF Exacerbation, Reduced Systolic 40-45% NYSA Class III Assessment/Plan -Continue Levophed with titration to MAP greater than 65. Midodrine 10mg TID added. DC hydrocortisone after dose this AM. Continue cefepime. Blood cultures NGTD. Respiratory cultures pending. Urine cultures show E. Coli, sensitive to fluroquinolones. WBC elevation likely exacerbated by hydrocortisone use. Infectious disease consulted, Dr. Burton.. -Additional 1 L NS at 250 mL/h. Patient has received a total of 5 L of IV fluids since admission. -Cardiology consulted. TTE shows reduced systolic EF 40-45%. Start plavix and aspirin, coreg and ACEi once shock resolves. -DERECK improving. Ultrasound renal does not reveal any signs of hydronephrosis. Continue Kendall for urinary retention. -Insulin sliding scale for type 2 diabetes. Glargine 8U added QAM. -Goal pulse ox 90 to 92%. -Physical therapy pending. -LFTs stabilizing. May be secondary to hypotension. US abdomen ordered, no acute abnormalities. Hhepatitis, HIV, Tylenol level, alcohol level, UDS negative. -Protonix 40 mg daily. -Full code. Discussed with the patient at bedside with POA . Dietary Evaluation Review Comments: follow the current diet regimen, monitor intake to meet 75% of his needs Expected Outcomes/Goals: gradual weight loss. Plan discussed with: Patient IRENA PEGUERO DO Jan 02, 2024 11:32
--- NOTE | 2024-01-02 12:17 | DVHPN2 ---
Progress Note Date Seen: Jan 02, 2024 Medical Necessity Reason Pt with a Central, PICC or Fol: Yes The following are medically ne: Kendall Catheter Reason for kendall catheter: Strict I&O Subjective Other Systems: midodrine added Objective vital signs Vital Sign Date Time Temp Pulse Resp B/P (MAP) Pulse Ox O2 Delivery O2 Flow Rate FiO2 01/02/24 12:00 61 15 97 01/02/24 11:54 Nasal Cannula* 2 28 01/02/24 11:15 98.4 119/59 (79) 98.4 Total Intake and Output 01/01/24 01/01/24 01/02/24 14:59 22:59 06:59 Intake Total 718.00 ml 330.00 ml 98.75 ml Output Total 500 ml 600 ml Balance 718.00 ml -170.00 ml -501.25 ml medications Current Medications Medications Dose Ordered Sig/Brody Route Start Time Stop Time Status Last Admin Dose Admin Nitroglycerin 0.4 mg Q5MINP PRN SL 12/30/23 06:45 Morphine Sulfate 2 mg Q30M PRN IV 12/30/23 06:45 Albuterol 2.5 mg Q6HR NEB 12/30/23 12:00 01/02/24 11:54 2.5 MG Ipratropium [place] 0.5 mg Q6HP NEB 12/30/23 12:00 01/02/24 11:53 0.5 MG Diagnostic Test (Pha) 1 strip ACHS 12/30/23 07:00 01/02/24 11:05 1 STRIP Insulin Human Regular ACHS SC 12/30/23 07:00 01/02/24 11:04 6 UNITS Dextrose 50 ml UD PRN IV 12/30/23 07:00 Norepinephrine Bitartrate 250 ml @ 3.75 mls/hr Q24H IV 12/30/23 07:00 01/01/24 00:34 7.5 MLS/HR Cefepime HCl 50 ml @ 12.5 mls/hr Q12HR IV 12/30/23 22:00 01/02/24 09:04 12.5 MLS/HR Atorvastatin Calcium 20 mg HS PO 12/30/23 22:00 01/01/24 22:08 20 MG Pantoprazole Sodium 40 mg DAILY IV 12/30/23 11:30 01/02/24 09:04 40 MG Melatonin 10 mg HS PRN PO 12/30/23 22:45 01/01/24 22:08 10 MG Clopidogrel Bisulfate 75 mg DAILY PO 01/02/24 10:00 01/02/24 09:04 75 MG Insulin Glargine 8 units QAM SC 01/02/24 08:45 01/02/24 08:45 8 UNITS Midodrine 10 mg TID@0600,1200,1800 PO 01/02/24 12:00 01/02/24 11:07 10 MG Examination: GENERAL:Abnormal, HEENT:Abnormal, LUNGS:Abnormal, CVS:Abnormal, ABDOMEN:Abnormal laboratory and microbiology Laboratory Tests 01/02/24 03:04 Test 01/02/24 03:04 Range/Units Serum Glucose 265 H 74-106 mg/dL Microbiology Date/Time Source Procedure Growth Status 12/30/23 16:20 Urine - Kendall Port Urine Culture - Final Escherichia coli Complete 12/30/23 14:30 Nose MRSA Screen - Final Complete 12/30/23 03:09 Blood Blood Culture - Preliminary NO GROWTH AFTER 72 HOURS OF INCUBATION. Resulted Problem List/Assessment/Plan Problem List/Assessment/Plan nstemi suspected cad urosepsis hypotension mild CHF with NYHA class III HF dc heparin gtt start plavix, start atorvastatin for HF: nothign for now given pressors , eventual low dose coreg and acei on DC on midodrine will sign off please call for ?s fu with me 3 weeks after DC Plan discussed with: Patient Dietary Evaluation Review Comments: follow the current diet regimen, monitor intake to meet 75% of his needs Expected Outcomes/Goals: gradual weight loss. Date of Service: Jan 02, 2024 Billing Provider: CARYN SCHMIDT MD Common Visit Codes: NOT BILLABLE CARYN SCHMIDT MD Jan 02, 2024 12:17
--- NOTE | 2024-01-02 16:12 | DVHPN2 ---
Progress Note Date Seen: Jan 02, 2024 Medical Necessity Reason Pt with a Central, PICC or Fol: Yes The following are medically ne: Kendall Catheter Reason for kendall catheter: Strict I&O Subjective Patient reports: No new complaints, Feels better Review of Systems: HEENT:Normal, CVS:Normal, RESPIRATORY:Normal, GI:Normal, :Normal, MSK:Normal, NEURO:Normal Objective vital signs Vital Sign Date Time Temp Pulse Resp B/P (MAP) Pulse Ox O2 Delivery O2 Flow Rate FiO2 01/02/24 15:40 64 01/02/24 15:39 21 97 Nasal Cannula* 2 28 01/02/24 15:00 98.4 126/59 (81) 98.4 Total Intake and Output 01/01/24 01/01/24 01/02/24 14:59 22:59 06:59 Intake Total 718.00 ml 330.00 ml 98.75 ml Output Total 500 ml 600 ml Balance 718.00 ml -170.00 ml -501.25 ml medications Current Medications Medications Dose Ordered Sig/Brody Route Start Time Stop Time Status Last Admin Dose Admin Nitroglycerin 0.4 mg Q5MINP PRN SL 12/30/23 06:45 Morphine Sulfate 2 mg Q30M PRN IV 12/30/23 06:45 Albuterol 2.5 mg Q6HR NEB 12/30/23 12:00 01/02/24 11:54 2.5 MG Ipratropium [place] 0.5 mg Q6HP NEB 12/30/23 12:00 01/02/24 11:53 0.5 MG Diagnostic Test (Pha) 1 strip ACHS 12/30/23 07:00 01/02/24 11:05 1 STRIP Insulin Human Regular ACHS SC 12/30/23 07:00 01/02/24 11:04 6 UNITS Dextrose 50 ml UD PRN IV 12/30/23 07:00 Norepinephrine Bitartrate 250 ml @ 3.75 mls/hr Q24H IV 12/30/23 07:00 01/01/24 00:34 7.5 MLS/HR Cefepime HCl 50 ml @ 12.5 mls/hr Q12HR IV 12/30/23 22:00 01/02/24 09:04 12.5 MLS/HR Atorvastatin Calcium 20 mg HS PO 12/30/23 22:00 01/01/24 22:08 20 MG Pantoprazole Sodium 40 mg DAILY IV 12/30/23 11:30 01/02/24 09:04 40 MG Melatonin 10 mg HS PRN PO 12/30/23 22:45 01/01/24 22:08 10 MG Clopidogrel Bisulfate 75 mg DAILY PO 01/02/24 10:00 01/02/24 09:04 75 MG Insulin Glargine 8 units QAM SC 01/02/24 08:45 01/02/24 08:45 8 UNITS Midodrine 10 mg TID@0600,1200,1800 PO 01/02/24 12:00 01/02/24 11:07 10 MG Polyethylene Glycol 17 gm BIDPRN PRN PO 01/02/24 14:15 Examination: GENERAL:Normal, HEENT:Normal, NECK:Normal, LUNGS:Normal, CVS:Normal, ABDOMEN:Normal, MSK:Normal, SKIN:Normal, NEURO:Normal, :Normal laboratory and microbiology Laboratory Tests 01/02/24 03:04 Test 01/02/24 03:04 Range/Units Serum Glucose 265 H 74-106 mg/dL Microbiology Date/Time Source Procedure Growth Status 12/30/23 16:20 Urine - Kendall Port Urine Culture - Final Escherichia coli Complete 12/30/23 14:30 Nose MRSA Screen - Final Complete 12/30/23 03:09 Blood Blood Culture - Preliminary NO GROWTH AFTER 72 HOURS OF INCUBATION. Resulted Problem List/Assessment/Plan Problem List/Assessment/Plan 1) hemodynamically mediated acute kidney injury and vasomotor nephropathy in the setting of shock. 2) possible NSTEMI 3) CKD stage III? , approximally 500 mg of proteinuria-no baseline available 4) elevated anion gap metabolic acidosis, lactic acidosis 5) septic shock /uti/ecoli recs on levophed 2mcg stable renal function ivf iv abx Plan discussed with: Patient Dietary Evaluation Review Comments: follow the current diet regimen, monitor intake to meet 75% of his needs Expected Outcomes/Goals: gradual weight loss. KENTON ASHRAF MD Jan 02, 2024 16:12
[2024-01-02] MEDS: POLYETHYLENE GLYCOL 17 GM PWDR PO PRN (16:20)
--- NOTE | 2024-01-02 21:43 | DVHPN2 ---
Consult Progress Note Date Seen: Jan 02, 2024 Subjective Patient reports: Other (mentating well , kendall catheter was cloudy urine , 2 of levofed, ) Objective vital signs Vital Sign Date Time Temp Pulse Resp B/P (MAP) Pulse Ox O2 Delivery O2 Flow Rate FiO2 01/02/24 20:45 59 22 137/56 (83) 01/02/24 20:15 95 01/02/24 20:00 97.8 97.8 01/02/24 20:00 Nasal Cannula* 2 28 Total Intake and Output 01/01/24 01/01/24 01/02/24 15:00 23:00 07:00 Intake Total 705.25 ml 342.50 ml 90.00 ml Output Total 500 ml 600 ml Balance 705.25 ml -157.50 ml -510.00 ml medications Current Medications Medications Dose Ordered Sig/Brody Route Start Time Stop Time Status Last Admin Dose Admin Nitroglycerin 0.4 mg Q5MINP PRN SL 12/30/23 06:45 Morphine Sulfate 2 mg Q30M PRN IV 12/30/23 06:45 Albuterol 2.5 mg Q6HR NEB 12/30/23 12:00 01/02/24 18:32 2.5 MG Ipratropium [place] 0.5 mg Q6HP NEB 12/30/23 12:00 01/02/24 18:31 0.5 MG Diagnostic Test (Pha) 1 strip ACHS 12/30/23 07:00 01/02/24 16:56 1 STRIP Insulin Human Regular ACHS SC 12/30/23 07:00 01/02/24 16:56 6 UNITS Dextrose 50 ml UD PRN IV 12/30/23 07:00 Norepinephrine Bitartrate 250 ml @ 3.75 mls/hr Q24H IV 12/30/23 07:00 01/01/24 00:34 7.5 MLS/HR Atorvastatin Calcium 20 mg HS PO 12/30/23 22:00 01/01/24 22:08 20 MG Pantoprazole Sodium 40 mg DAILY IV 12/30/23 11:30 01/02/24 09:04 40 MG Melatonin 10 mg HS PRN PO 12/30/23 22:45 01/01/24 22:08 10 MG Clopidogrel Bisulfate 75 mg DAILY PO 01/02/24 10:00 01/02/24 09:04 75 MG Insulin Glargine 8 units QAM SC 01/02/24 08:45 01/02/24 08:45 8 UNITS Midodrine 10 mg TID@0600,1200,1800 PO 01/02/24 12:00 01/02/24 16:56 10 MG Polyethylene Glycol 17 gm BIDPRN PRN PO 01/02/24 14:15 01/02/24 16:20 17 GM Ceftriaxone Sodium/Dextrose 50 ml @ 50 mls/hr DAILY@2200 IV 01/02/24 22:00 laboratory and microbiology Laboratory Tests 01/02/24 03:04 Test 01/02/24 03:04 Range/Units Serum Glucose 265 H 74-106 mg/dL Problem List/Assessment/Plan Problems(with codes): (1) Septic shock (2) Urinary tract infection (3) COPD exacerbation (4) NSTEMI (non-ST elevated myocardial infarction) (5) PNA (pneumonia) (6) Acute kidney injury superimposed on CKD Problem List/Assessment/Plan ASSESSMENT AND PLAN: ID Problem List: COPD Diabetes mellitus Coronary artery disease UTI Pneumonia Septic shock DERECK Ischemic hepatopathy Assessment: This is an 88 y.o. male with a past medical history of COPD, diabetes mellitus, and coronary artery disease, who presents with generalized weakness, shortness of breath, fever, and dysuria. On admission, he was hypotensive and tachycardic and was found to have a UTI and pneumonia. Elevated troponin levels were noted. 12/31: TTE shows a junction fraction of 40-45% with a hypokinetic septum , right ventricle moderately enlarged , small pericardial effusion. Cardiology is recommending outpatient management for NSTEMI and treatment for UTI 01/01: whitecount is 15.2 Plan: switch cefepime to ceftraixone when patient is doing better clinically and off pressures follow up on sputum cultures and blood cultures Recommend CT abdomen/pelvis to further evaluate once the patient clinically improves. Continue ICU support and pressures for hypotension in the setting of septic shock. Hold off further diagnostics until renal function improves. Patient screened for HIV, hepatitis, influenza A&B, and COVID; all serologies negative. Patient remains on 2 mcg/min of Levafed for blood pressure support. No noted fevers, breathing well on 2 liters nasal cannula. Authorized and Performed by:vladimir donovan MD Total critical care time: Approximately 75 minutes Due to a high probability of clinically significant, life threatening deterioration, the patient required my highest level of preparedness to intervene emergently and I personally spent this critical care time directly and personally managing the patient. This critical care time included obtaining a history; examining the patient; pulse oximetry; ordering and review of studies; arranging urgent treatment with development of a management plan; evaluation of patient's response to treatment; frequent reassessment; and, discussions with other providers. This critical care time was performed to assess and manage the high probability of imminent, life-threatening deterioration that could result in multi-organ failure. It was exclusive of separately billable procedures and treating other patients and teaching time. Thank you for interesting consult. ID will continue to follow. Please contact Infectious disease for any questions or concerns. Plan discussed with: Other Dietary Evaluation Review Comments: follow the current diet regimen, monitor intake to meet 75% of his needs Expected Outcomes/Goals: gradual weight loss. VLADIMIR DONOVAN MD Jan 02, 2024 21:43
[2024-01-02] MEDS: cefTRIAXone 2GM/50ML D5W 50 ML IV SCH (21:46)
[2024-01-03] VITALS (49 sets, daily range): BP systolic 89–123; BP diastolic 38–61; PULSE 50–81; RESP 13–23; TEMP 97.5–98.2; O2SAT 93–100
[2024-01-03 08:00] LABS: Hematocrit 37.3 % (41.0-53.0); Hemoglobin 12.4 g/dL (13.5-17.5); Mean Corpuscular Hemoglobin 29.2 pg (28.0-32.0); Mean Corpuscular Hgb Conc. 33.2 g/dL (32.0-36.0); Platelet Count (auto) 157 10^3/uL (140-450); Red Blood Cells 4.24 10^6/uL (4.5-5.90); Red Cell Distribution Width 14.3 % (11.8-14.3); White Blood Cell 11.4 10^3/uL (4.4-10.8)
[2024-01-03 08:01] LABS: Chloride 109 mmol/L (98-107); Potassium 4.1 mmol/L (3.5-5.1); Sodium 140 mmol/L (136-145)
[2024-01-03 08:02] LABS: Anion Gap 5 (5-15); Calcium 8.6 mg/dL (8.7-10.4); Carbon Dioxide 26 mmol/L (20-31)
[2024-01-03 08:06] LABS: Basophils % (manual) 0 (0.0-2.0); Blast Cells 0; Eosinophils % (manual) 0 (0-7); Promyelocytes % 0; Reactive Lymphocytes 0
[2024-01-03 08:07] LABS: BUN/Creatinine Ratio 24.6 (10.0-20.0); Blood Urea Nitrogen 34 mg/dL (9-23)
[2024-01-03 08:08] LABS: Magnesium 2.5 mg/dL (1.6-2.6)
[2024-01-03 08:10] LABS: Glucose 142 mg/dL (74-106)
[2024-01-03 08:39] LABS: Band Neutrophils % (manual) 3; Lymphocytes % (manual) 16 (10.0-50.0); Metamyelocytes % 1; Monocytes % (manual) 2 (0-12); Myelocytes % 2; Platelet Estimate Adequate
[2024-01-03] MEDS: TAMSULOSIN HYDROCHLORIDE 0.4 MG CAP PO ONE (08:45)
--- NOTE | 2024-01-03 11:38 | DVHPN2 ---
Progress Note - Dictate Date Seen: Jan 03, 2024 Medical Necessity Reason Pt with a Central, PICC or Fol: Yes The following are medically ne: Kendall Catheter Reason for kendall catheter: Strict I&O Subjective Patient feeling well today. Notes he has not had a bowel movement. vital signs Vital Sign Date Time Temp Pulse Resp B/P (MAP) Pulse Ox O2 Delivery O2 Flow Rate FiO2 01/03/24 09:30 20 97 Nasal Cannula* 2 28 01/03/24 09:30 58 01/03/24 09:00 97.5 123/61 (81) 97.5 Total Intake and Output 01/02/24 01/02/24 01/03/24 15:00 23:00 07:00 Intake Total 203.75 ml 476.25 ml 325 ml Output Total 700 ml 700 ml Balance 203.75 ml -223.75 ml -375 ml medications Current Medications Medications Dose Ordered Sig/Brody Route Start Time Stop Time Status Last Admin Dose Admin Nitroglycerin 0.4 mg Q5MINP PRN SL 12/30/23 06:45 Morphine Sulfate 2 mg Q30M PRN IV 12/30/23 06:45 Albuterol 2.5 mg Q6HR NEB 12/30/23 12:00 01/03/24 06:31 2.5 MG Ipratropium [place] 0.5 mg Q6HP NEB 12/30/23 12:00 01/03/24 06:31 0.5 MG Diagnostic Test (Pha) 1 strip ACHS 12/30/23 07:00 01/03/24 10:41 1 STRIP Insulin Human Regular ACHS SC 12/30/23 07:00 01/03/24 10:41 2 UNITS Dextrose 50 ml UD PRN IV 12/30/23 07:00 Norepinephrine Bitartrate 250 ml @ 3.75 mls/hr Q24H IV 12/30/23 07:00 01/01/24 00:34 7.5 MLS/HR Atorvastatin Calcium 20 mg HS PO 12/30/23 22:00 01/02/24 21:40 20 MG Pantoprazole Sodium 40 mg DAILY IV 12/30/23 11:30 01/03/24 08:25 40 MG Melatonin 10 mg HS PRN PO 12/30/23 22:45 01/01/24 22:08 10 MG Clopidogrel Bisulfate 75 mg DAILY PO 01/02/24 10:00 01/03/24 08:26 75 MG Insulin Glargine 8 units QAM SC 01/02/24 08:45 01/03/24 06:27 8 UNITS Midodrine 10 mg TID@0600,1200,1800 PO 01/02/24 12:00 01/03/24 06:21 10 MG Polyethylene Glycol 17 gm BIDPRN PRN PO 01/02/24 14:15 01/03/24 08:37 17 GM Ceftriaxone Sodium/Dextrose 50 ml @ 50 mls/hr DAILY@2200 IV 01/02/24 22:00 01/02/24 21:46 50 MLS/HR objective General appearance: No acute distress Respiratory: Fine bibasilar crackles. Cardiovascular: Regular rate and rhythm, no murmurs. No edema Abdomen: Soft, nondistended, nontender, bowel sounds present. No signs of acute abdomen. MSK: Normal range of motion. Neuro: Alert, no neurological deficits Psych: Appropriate mood and affect. laboratory and microbiology Laboratory Tests 01/03/24 07:32 Test 01/03/24 07:32 Range/Units Serum Glucose 142 #H 74-106 mg/dL Problem List 1. Septic Shock 2. NSTEMI 3. DERECK 4. Type 2 DM 5. UTI 6. Acute Respiratory Failure 7. Acute CHF Exacerbation, Reduced Systolic 40-45% NYSA Class III Assessment/Plan -Continue Levophed with titration to MAP greater than 65. Midodrine 10mg TID added. Continue cefepime. Blood cultures NGTD. Respiratory cultures pending. Urine cultures show E. Coli, sensitive to fluroquinolones. WBC elevation likely exacerbated by hydrocortisone use. Infectious disease consulted, Dr. Burton.. -Patient has received a total of 6 L of IV fluids since admission. -Cardiology consulted. TTE shows reduced systolic EF 40-45%. Start plavix and aspirin, coreg and ACEi once shock resolves. -DERECK improving. Ultrasound renal does not reveal any signs of hydronephrosis. Continue Kendall for urinary retention. Plan to remove kendall catheter and start flomax. -Insulin sliding scale for type 2 diabetes. Glargine 8U added QAM. -Goal pulse ox 90 to 92%. -Physical therapy pending. -LFTs stabilizing. May be secondary to hypotension. US abdomen ordered, no acute abnormalities. Hhepatitis, HIV, Tylenol level, alcohol level, UDS negative. -Protonix 40 mg daily. -PT eval pending. Pending DC home with home health vs SNF. -Full code. Discussed with the patient at bedside with POA . Dietary Evaluation Review Comments: follow the current diet regimen, monitor intake to meet 75% of his needs Expected Outcomes/Goals: gradual weight loss. Plan discussed with: Patient IRENA PEGUERO DO Jan 03, 2024 11:38
[2024-01-03] MEDS ORDERED: MID10T PO (15:40)
[2024-01-03] MEDS ORDERED: LEVO750T40 PO (15:40)
[2024-01-03] MEDS ORDERED: CLOP75TA70 PO (15:40)
[2024-01-03] MEDS ORDERED: POLY335015 PO (15:42)
--- NOTE | 2024-01-03 17:42 | DVHPN2 ---
Progress Note Date Seen: Jan 03, 2024 Medical Necessity Reason Pt with a Central, PICC or Fol: Yes The following are medically ne: Kendall Catheter Reason for kendall catheter: Strict I&O Subjective Patient reports: No new complaints, Feels better Review of Systems: HEENT:Normal, CVS:Normal, RESPIRATORY:Normal, GI:Normal, :Normal, MSK:Normal, NEURO:Normal Objective vital signs Vital Sign Date Time Temp Pulse Resp B/P (MAP) Pulse Ox O2 Delivery O2 Flow Rate FiO2 01/03/24 16:21 20 97 Nasal Cannula* 2 28 01/03/24 16:21 79 01/03/24 16:01 97.8 01/03/24 16:00 109/49 (69) Total Intake and Output 01/02/24 01/02/24 01/03/24 14:59 22:59 06:59 Intake Total 207.50 ml 480.00 ml 325 ml Output Total 700 ml 700 ml Balance 207.50 ml -220.00 ml -375 ml medications Current Medications Medications Dose Ordered Sig/Brody Route Start Time Stop Time Status Last Admin Dose Admin Nitroglycerin 0.4 mg Q5MINP PRN SL 12/30/23 06:45 Morphine Sulfate 2 mg Q30M PRN IV 12/30/23 06:45 Albuterol 2.5 mg Q6HR NEB 12/30/23 12:00 01/03/24 06:31 2.5 MG Ipratropium [place] 0.5 mg Q6HP NEB 12/30/23 12:00 01/03/24 06:31 0.5 MG Diagnostic Test (Pha) 1 strip ACHS 12/30/23 07:00 01/03/24 17:28 1 STRIP Insulin Human Regular ACHS SC 12/30/23 07:00 01/03/24 10:41 2 UNITS Dextrose 50 ml UD PRN IV 12/30/23 07:00 Norepinephrine Bitartrate 250 ml @ 3.75 mls/hr Q24H IV 12/30/23 07:00 01/01/24 00:34 7.5 MLS/HR Atorvastatin Calcium 20 mg HS PO 12/30/23 22:00 01/02/24 21:40 20 MG Pantoprazole Sodium 40 mg DAILY IV 12/30/23 11:30 01/03/24 08:25 40 MG Melatonin 10 mg HS PRN PO 12/30/23 22:45 01/01/24 22:08 10 MG Clopidogrel Bisulfate 75 mg DAILY PO 01/02/24 10:00 01/03/24 08:26 75 MG Insulin Glargine 8 units QAM SC 01/02/24 08:45 01/03/24 06:27 8 UNITS Midodrine 10 mg TID@0600,1200,1800 PO 01/02/24 12:00 01/03/24 17:28 10 MG Polyethylene Glycol 17 gm BIDPRN PRN PO 01/02/24 14:15 01/03/24 08:37 17 GM Ceftriaxone Sodium/Dextrose 50 ml @ 50 mls/hr DAILY@2200 IV 01/02/24 22:00 01/02/24 21:46 50 MLS/HR laboratory and microbiology Laboratory Tests 01/03/24 07:32 Test 01/03/24 07:32 Range/Units Serum Glucose 142 #H 74-106 mg/dL Microbiology Date/Time Source Procedure Growth Status 12/30/23 16:20 Urine - Kendall Port Urine Culture - Final Escherichia coli Complete 12/30/23 14:30 Nose MRSA Screen - Final Complete 12/30/23 03:09 Blood Blood Culture - Preliminary NO GROWTH AFTER 72 HOURS OF INCUBATION. Resulted Problem List/Assessment/Plan Problem List/Assessment/Plan 1) hemodynamically mediated acute kidney injury and vasomotor nephropathy in the setting of shock. 2) possible NSTEMI 3) CKD stage III? , approximally 500 mg of proteinuria-no baseline available 4) elevated anion gap metabolic acidosis, lactic acidosis 5) septic shock /uti/ecoli recs improved renal function iv abx Plan discussed with: Patient Dietary Evaluation Review Comments: follow the current diet regimen, monitor intake to meet 75% of his needs Expected Outcomes/Goals: gradual weight loss. KENTON ASHRAF MD Jan 03, 2024 17:42
--- NOTE | 2024-01-03 17:47 | DVHDS2 ---
Discharge Summary Date of Admission Dec 30, 2023 at 06:51 Date of Discharge: Jan 03, 2024 Labs/Diagnostic Data: Laboratory Results Test 01/03/24 17:16 01/03/24 07:32 01/02/24 03:04 01/01/24 10:44 POC Glucose 101 mg/dl (70-106) White Blood Count 11.4 10^3/uL (4.4-10.8) Red Blood Count 4.24 10^6/uL (4.5-5.90) Hemoglobin 12.4 g/dL (13.5-17.5) Hematocrit 37.3 % (41.0-53.0) Mean Corpuscular Volume 88.0 fL (80.0-100.0) Mean Corpuscular Hemoglobin 29.2 pg (28.0-32.0) Mean Corpuscular Hemoglobin Concent 33.2 g/dL (32.0-36.0) Red Cell Distribution Width 14.3 % (11.8-14.3) Platelet Count 157 10^3/uL (140-450) Mean Platelet Volume 7.8 fL (6.9-10.8) Neutrophils (%) (Auto) % (37.0-80.0) Lymphocytes (%) (Auto) % (10.0-50.0) Monocytes (%) (Auto) % (0.0-12.0) Basophils (%) (Auto) % (0.0-2.0) Neutrophils # (Auto) 10 ^3/uL (1.6-8.6) Lymphocytes # (Auto) 10 ^3/uL (0.4-5.4) Monocytes # (Auto) 10 ^3/uL (0-1.3) Differential Total Cells Counted 100.0 (100) Neutrophils % (Manual) 76 (37.0-80.0) Band Neutrophils % (Manual) 3 Lymphocytes % (Manual) 16 (10.0-50.0) Monocytes % (Manual) 2 (0-12) Eosinophils % (Manual) 0 (0-7) Basophils % (Manual) 0 (0.0-2.0) Metamyelocytes % (manual) 1 Myelocytes % (Manual) 2 Promyelocytes % (Manual) 0 Blast Cells % (Manual) 0 Nucleated Red Blood Cells 1.0 % Reactive Lymphocytes 0 Platelet Estimate Adequate Sodium Level 140 mmol/L (136-145) Potassium Level 4.1 mmol/L (3.5-5.1) Chloride Level 109 mmol/L (98-107) Carbon Dioxide Level 26 mmol/L (20-31) Anion Gap 5 (5-15) Blood Urea Nitrogen 34 mg/dL (9-23) Creatinine 1.38 mg/dL (0.700-1.30) Glomerular Filtration Rate Calc 50 mL/min (>90) BUN/Creatinine Ratio 24.6 (10.0-20.0) Serum Glucose 142 mg/dL (74-106) Calcium Level 8.6 mg/dL (8.7-10.4) Magnesium Level 2.5 mg/dL (1.6-2.6) Large Platelets Few Total Bilirubin 0.3 mg/dL (0.2-1.0) Aspartate Amino Transferase (AST) 115 U/L (13-40) Alanine Aminotransferase (ALT) 199 U/L (7-40) Alkaline Phosphatase 175 U/L (46-116) Total Protein 5.4 g/dL (5.7-8.2) Albumin 3.5 g/dL (3.2-4.8) Plasma/Serum Blood Alcohol < 3.0 mg/dL (<10) Hepatitis A IgM Antibody Negative Hepatitis B Surface Antigen Negative (Negative) Hepatitis B Core IgM Antibody Negative Hepatitis C Antibody Negative (Negative) HIV (1&2) Antibody Negative (Negative) Test 01/01/24 09:00 01/01/24 02:20 12/31/23 06:03 12/31/23 03:20 Prothrombin Time 11.4 sec (9.3-11.8) Prothrombin Time INR 1.08 (0.9-1.15) Activated Partial Thromboplast Time 67.2 SEC (24.5-34.5) Clumped Platelets Few Alyse Cells Few Phosphorus Level 2.0 mg/dL (2.4-5.1) Lactic Acid Level 3.5 mmol/L (0.4-2.0) Uric Acid 3.2 mg/dL (3.7-9.2) Direct Bilirubin 0.2 mg/dL (<0.3) Lactate Dehydrogenase 299 U/L (120-246) Troponin I High Sensitivity 732 ng/L (</=54) Test 12/30/23 16:20 12/30/23 03:37 12/30/23 03:26 12/30/23 03:09 Urine Color Colorless (Yellow) Urine Clarity Turbid (Clear) Urine pH 5.5 (5.0-9.0) Urine Specific Comfort 1.007 (1.001-1.035) Urine Protein 1+ (Negative) Urine Ketones Trace (Negative) Urine Blood 2+ /uL (Negative) Urine Nitrite Negative (Negative) Urine Bilirubin Negative (Negative) Urine Urobilinogen Normal mg/dL (Negative) Urine Leukocyte Esterase Trace /uL (Negative) Urine RBC 7 /hpf (0 - 3) Urine WBC 11 /hpf (0 - 3) Urine Squamous Epithelial Cells Few /hpf (<5) Urine Bacteria Few /hpf (None Seen) Urine Mucus Few (None Seen) Urine Yeast (Budding) Moderate /hpf (None Seen) Urine Creatinine 38.87 mg/dL (30.0-125.0) Urine Sodium < 10 mmol/L (40-220) Urine Glucose 3+ mg/dL (Normal) Urine Total Protein 60.6 mg/dL (1-14) Influenza Type A Antigen Negative (Negative) Influenza Type B Antigen Negative (Negative) SARS-CoV-2 Antigen (Rapid) Negative (NEGATIVE) Urine WBC Clumps Present /hpf (None Seen) Urine Hyaline Casts Mod /lpf (0 - 2) Urine Granular Casts Few /lpf (0) Eosinophils (%) (Auto) 0.1 % (0.0-7.0) Eosinophils # (Auto) 0 10 ^3/uL (0-0.8) Basophils # (Auto) 0 10 ^3/uL (0-0.2) Other Laboratory Tests 01/03/24 07:32 Brief Hx & Hospital Course: Patient is an 88-year-old male with past medical history of BPH, hypertension, who presents with 2 days of generalized weakness. Patient was noted to be hypotensive in the ER requiring Levophed support. He was admitted to ICU for septic shock. Patient presented with normal white count. Imaging findings were notable for chest x-ray showing an ill-defined right lower lobe opacity that may reflect pneumonia or atelectasis. Urine cultures were noted to grow E. coli sensitive to fluoroquinolones. Blood cultures showed no growth to date. Patient was started on hydrocortisone which was subsequently tapered. He was aggressively fluid resuscitated with a total of 5 L of IVF. Patient was transition to midodrine for goal MAP greater than 65. Patient was treated with vancomycin and cefepime. He was subsequently transition to only cefepime. On discharge patient was transitioned to levofloxacin 750 mg daily for duration of 2 weeks at the recommendation of infectious disease. Patient had home oxygen set up as he was on 2 L nasal cannula throughout his hospitalization. Of note, patient was noted to have elevated troponins reaching a peak of 2483. Patient was started on heparin drip and cardiology was consulted. It was recommended that patient continue medical management and his presentation was attributed to demand ischemia. Patient was started on Plavix 75 mg daily. He was counseled extensively on his bleeding risks with family at bedside and the need to return to the ER immediately. Of note, patient was noted to have an DERECK with BUN/creatinine of 1.92 on admission. Prior to discharge his serum creatinine improved to 34/1.38. Ultrasound renal did not show any hydronephrosis. Patient had a Coelho catheter placed during his hospitalization for urinary retention. He was removed prior to discharge and patient was able to successfully urinate. Patient was to have elevated liver enzymes with LFTs in the low 100s. This was attributed to shock liver due to hypotension. Ultrasound abdomen did not show any evidence of right upper quadrant abnormalities. Patient was discharged home on home oxygen 2 L, Plavix, midodrine, levofloxacin, and MiraLAX for constipation. Patient was ambulating independently with the assistance of a walker. Home health set up for patient. [facility] case management help arrange follow-up appointments with cardiology, nephrology and infectious disease. Condition at Discharge: Good Final Diagnosis/Problems List Septic shock Secondary Diagnosis: 2. NSTEMI 3. DERECK 4. Type 2 DM 5. UTI 6. Acute Respiratory Failure 7. Acute CHF Exacerbation, Reduced Systolic 40-45% NYSA Class III 8. Morbid Obesity Discharge Disposition: Home with Health Services Discharge Instruct/Medications Diet: Cardiac 2g Na,low cholest Activity: No Restrictions, As Tolerated Follow Up/Referral: Follow up with Dr. Burton Infectious Disease in 2 weeks. Follow up with cardiology. Follow up with nephrology. Discharge Statement: "Patient was advised to return to the ER or call 911 if any headaches, dizziness, shortness of breath, chest pain, abdominal pain, bleeding, fevers, or worsening of medical condition. Patient was counseled about treatment plan, medications, possible side effects, patientverbalized understanding. All questions were answered to the best of my ability. This discharge took greater then 30 minutes in planning, reviewing documentation, counseling the patient, and discussing with other team members." ASSESSMENT ASSESSMENT Assessment Septic shock IRENA PEGUERO DO Jan 03, 2024 17:47
--- NOTE | 2024-01-04 19:59 | DVHPN2 ---
Consult Progress Note Date Seen: Jan 03, 2024 Subjective Patient reports: Feels better (off pressors doing well on the floor) Objective vital signs Vital Sign Date Time Temp Pulse Resp B/P (MAP) Pulse Ox O2 Delivery O2 Flow Rate FiO2 01/03/24 18:00 20 97 Nasal Cannula* 2 28 01/03/24 18:00 79 01/03/24 16:01 97.8 01/03/24 16:00 109/49 (69) Total Intake and Output 01/03/24 01/03/24 01/04/24 15:00 23:00 07:00 Output Total 1600 ml Balance -1600 ml medications PHYSICAL EXAM: - GENERAL: Alert and oriented x 3. No acute distress. Well-nourished. - EYES: EOMI. Anicteric. - HENT: Moist mucous membranes. No scleral icterus. No cervical lymphadenopathy. - LUNGS: Clear to auscultation bilaterally. No accessory muscle use. - CARDIOVASCULAR: Regular rate and rhythm. No murmur. No JVD. - ABDOMEN: Soft, non-tender and non-distended. No palpable masses. - EXTREMITIES: No edema. Non-tender.?SKIN: No rashes or lesions. Warm. - NEUROLOGIC: No focal neurological deficits. CN II-XII grossly intact, but not individually tested. - PSYCHIATRIC: Cooperative. Appropriate mood and affect. laboratory and microbiology Laboratory Tests 01/03/24 07:32 Test 01/03/24 07:32 Range/Units Serum Glucose 142 #H 74-106 mg/dL Problem List/Assessment/Plan Problem List/Assessment/Plan ASSESSMENT AND PLAN: ID Problem List: COPD Diabetes mellitus Coronary artery disease UTI Pneumonia Septic shock DERECK Ischemic hepatopathy Assessment: This is an 88 y.o. male with a past medical history of COPD, diabetes mellitus, and coronary artery disease, who presents with generalized weakness, shortness of breath, fever, and dysuria. On admission, he was hypotensive and tachycardic and was found to have a UTI and pneumonia. Elevated troponin levels were noted. 12/31: TTE shows a junction fraction of 40-45% with a hypokinetic septum , right ventricle moderately enlarged , small pericardial effusion. Cardiology is recommending outpatient management for NSTEMI and treatment for UTI 01/01: whitecount is 15.2 Plan: continue ceftriaxone, can use oral cefdinir to complete a 14 days course when patient is ready for discharge follow up on sputum cultures and blood cultures Recommend CT abdomen/pelvis to further evaluate once the patient clinically improves. Continue ICU support and pressures for hypotension in the setting of septic shock. Hold off further diagnostics until renal function improves. Patient screened for HIV, hepatitis, influenza A&B, and COVID; all serologies negative. Plan discussed with: Patient Dietary Evaluation Review Comments: follow the current diet regimen, monitor intake to meet 75% of his needs Expected Outcomes/Goals: gradual weight loss. VLADIMIR SALGADO MD Jan 04, 2024 19:59
== END 2024-01-03 18:54 | disposition home health service (06) | DRG 871 ==
LOC: EDBD 02:32 → ER 02:32 → OVERFLOW 06:51 → ICU WEST 09:39
PROVIDERS: ADMIT Student in an Organized Health Care Education/Training Program; ATTEND Student in an Organized Health Care Education/Training Program
DX: A41.9 Sepsis, unspecified organism (principal); I21.4 Non-ST elevation (NSTEMI) myocardial infarction; N17.0 Acute kidney failure with tubular necrosis; R65.21 Severe sepsis with septic shock; J96.00 Acute respiratory failure, unspecified whether with hypoxia or hypercapnia; J18.9 Pneumonia, unspecified organism; I50.23 Acute on chronic systolic (congestive) heart failure; K72.00 Acute and subacute hepatic failure without coma; E87.20 Acidosis, unspecified; J44.1 Chronic obstructive pulmonary disease with (acute) exacerbation; I13.0 Hypertensive heart and chronic kidney disease with heart failure and stage 1 through stage 4 chronic kidney disease, or unspecified chronic kidney disease; N39.0 Urinary tract infection, site not specified; I31.39 Other pericardial effusion (noninflammatory); J44.0 Chronic obstructive pulmonary disease with (acute) lower respiratory infection; E11.22 Type 2 diabetes mellitus with diabetic chronic kidney disease; E66.01 Morbid (severe) obesity due to excess calories; I25.10 Atherosclerotic heart disease of native coronary artery without angina pectoris; K59.00 Constipation, unspecified; N18.9 Chronic kidney disease, unspecified; N40.0 Benign prostatic hyperplasia without lower urinary tract symptoms; Z79.84 Long term (current) use of oral hypoglycemic drugs; Z79.899 Other long term (current) drug therapy; Z68.35 Body mass index [BMI] 35.0-35.9, adult
CPT/HCPCS: 36415; 71045; 76705; 76775; 80048; 80053; 80074; 80076; 80320; 81001; 82570; 82962; 83605; 83615; 83735; 84100; 84156; 84300; 84484; 84550; 85007; 85025; 85027; 85610; 85730; 86703; 87040; 87081; 87086; 87088; 87186; 87426; 87804; 93005; 93306; 94640; 97163; 99291; G0378; J0692; J1815; J2405; J2470